=== PATIENT | male | born 1935 | race Caucasian/White ===

== ENCOUNTER → 2025-02-15 09:11 | Outpatient (REF) | payer OTHER, SELFPAY | LOC: RCS 09:11 | PROVIDERS: ATTENDING PHYSICIAN Nurse Practitioner Family | DX: R01.1 Cardiac murmur, unspecified (principal); I10 Essential (primary) hypertension; I25.10 Atherosclerotic heart disease of native coronary artery without angina pectoris; Z95.5 Presence of coronary angioplasty implant and graft; Z87.898 Personal history of other specified conditions | CPT/HCPCS: 93005; 93306 ==

== ENCOUNTER → 2025-02-24 11:50 | Outpatient (REF) | payer OTHER, SELFPAY ==
[2025-02-24 12:19] LABS: % Eosinophils 3.9 % (0-6); % Immature Granulocytes 0.6 % (0-0.5); % Lymphocytes 34.3 % (20.5-51.1); % Monocytes 9.3 % (1.7-9.3); % Neutrophils 50.9 % (42.2-75.2); Absolute Basophils 0.1 10^3/uL (0-0.2); Absolute Eosinophils 0.3 10^3/uL (0-0.7); Absolute Immature Granulocytes 0.1 10^3/uL (0-0.05); Absolute Lymphocytes 2.8 10^3/uL (1.2-3.4); Absolute Monocytes 0.8 10^3/uL (0.1-0.6); Absolute Neutrophils 4.2 10^3/uL (1.4-6.5); Hemoglobin 12.8 g/dL (13.0-18.0); Mean Corp Hgb Conc. 32.8 g/dL (33.0-37.0); Mean Corpuscular Hgb 27.1 pg (27.0-31.0); Mean Corpuscular Volume 82.6 fL (80.0-94.0); Mean Platelet Volume 10.4 fL (7.4-10.4); Nucleated Red Blood Cells % 0 % (-); Platelet Count 186 10^3/uL (130-400); Red Blood Cell Count 4.72 10^6/uL (4.70-6.10); Red Cell Dist. Width 14.8 % (11.5-14.5); White Blood Cell Count 8.2 10^3/uL (4.8-10.8)
[2025-02-24 12:23] LABS: ALT (SGPT) 20 U/L (0-50); AST (SGOT) 28 U/L (17-59); Albumin 4.4 g/dl (3.5-5.0); Alkaline Phosphatase 95 U/L (38-126); Blood Urea Nitrogen 23 mg/dl (9-20); Calcium 9.2 mg/dl (8.4-10.2); Carbon Dioxide 26 mmol/L (22-30); Chloride 108 mmol/L (98-107); Glucose 104 mg/dl (70-99); HDL Cholesterol 44 mg/dl; LDL Cholesterol, Calculated 82 mg/dl; Potassium 4.4 mmol/L (3.5-5.1); Sodium 141 mmol/L (135-145); Total Bilirubin 1.1 mg/dl (0.2-1.3); Total Cholesterol 151 mg/dl (50-199); Triglyceride 127 mg/dl (10-149); Very Low Density Lipoprotein 25 mg/dl (0-30); eGFR > 60.00
[2025-02-24 12:29] LABS: NT-proBNP 237 pg/ml
[2025-02-24 12:38] LABS: Vitamin D, 25-OH*** 39.4 ng/mL (30-80)
[2025-02-24 12:42] LABS: Urine Albumin Negative (Neg - Trace); Urine Bilirubin Negative (Negative); Urine Character Clear (Clear); Urine Color Yellow; Urine Glucose Negative (Negative); Urine Ketone Negative (Negative); Urine Leukocyte Negative (Negative); Urine Nitrite Negative (Negative); Urine Occult Blood Negative (Negative); Urine Urobilinogen Negative (Neg - 1+); Urine pH 6.5 (5.0-9.0)
[2025-02-24 12:52] LABS: TSH Reflex To Free T4 5.13 uIU/ml (0.47-4.68)
[2025-02-24 13:23] LABS: Free T4 0.87 ng/dl (0.78-2.19)
[2025-02-24 13:31] LABS: Glycohemoglobin (HgbA1c) 5.9 % (4.0-5.6)
== END ==
LOC: OLABWHC 11:50
PROVIDERS: ATTENDING PHYSICIAN Nurse Practitioner Family
DX: I10 Essential (primary) hypertension (principal); Z76.89 Persons encountering health services in other specified circumstances; I25.10 Atherosclerotic heart disease of native coronary artery without angina pectoris; Z95.5 Presence of coronary angioplasty implant and graft; G89.29 Other chronic pain; M54.50 Low back pain, unspecified; E78.2 Mixed hyperlipidemia; N40.0 Benign prostatic hyperplasia without lower urinary tract symptoms; H35.30 Unspecified macular degeneration; K21.9 Gastro-esophageal reflux disease without esophagitis; Z01.89 Encounter for other specified special examinations
CPT/HCPCS: 36415; 80053; 80061; 81003; 82306; 83036; 83880; 84439; 84443; 85025

== ENCOUNTER 2025-06-12 12:40 | Emergency (ER) | payer OTHER, SELFPAY ==
[2025-06-12 12:42] VITALS: BP 113/76
[2025-06-12] MEDS: TYLENOL 1000 MG PO (13:23)
--- NOTE | 2025-06-12 14:22 | ED.GENMED ---
History of Present Illness
General
Chief Complaint: Back Pain
Source: patient
Exam Limitations: none
Time Seen by Provider: 06/12/25 14:16
History of Present Illness
History of Present Illness:
89 yr old male presents to the ED for evaluation of low back pain. pt has history of chronic low back pain (and has muscle relaxers and Tylenol at home )however over a week ago was doing exercises with machines and since then has felt pain in
his left lower back. He denies any radiation. He has taken his cyclobenzaprine at home along with Tylenol without relief. He denies any other trauma. He denies any radiation to leg. no loss of bowel/bladder. He denies any numbness tingling or
weakness to legs.
Phy Exam
General Physical Exam
General Presentation: no apparent distress
General age: appears stated age and appears older than age
General Skin: warm and dry
General Habitus: elderly
General Mental: alert
General Hydration: appears well hydrated
Cardiovascular Exam
Cardiovascular Exam: regular rate/rhythm, no murmur and normal peripheral pulses
Neurological Exam
Neurological Exam: alert, oriented x3 and other (nml distal sensation , neg straight leg raise normal dorsiflexion plantarflexion bilaterally)
Musculoskeletal Exam
Musculoskeletal Exam: full ROM and other (Normal inspection to lumbar region tender to left lateral lumbar region)
Skin Exam
Skin Exam: normal color and warm/dry
Psychiatric Exam
Psychiatric Exam: normal mood/affect
Course
Orders/Labs/Results
Orders:
Orders
06/12/25 13:20
Acetaminophen [Tylenol] 1,000 mg .ROUTE .STK-MED ONE
06/12/25 13:23
Acetaminophen [Tylenol] 1,000 mg PO NOW STA
06/12/25 14:38
Dexamethasone Sod Phosphate [Decadron] 10 mg IM NOW STA
Lidocaine [Lidocaine 4% Patch] 1 patch TOPICAL NOW STA
Apply Lidocaine patch(s) to:: left lumbar region
06/12/25 14:39
Lumbar Spine Complete, 4 View [CR Lumbar Spine Comp Min 4 Vw*] Urgent
Comment:
Reason For Exam: trauma
06/12/25 15:17
Dexamethasone Pf [Decadron] 10 mg PO NOW STA
Vital Signs
Initial and Last Documented VS:
Initial Vital Signs
Temp Pulse Resp BP Pulse Ox
98.4 F 89 18 113/76 99
06/12/25 12:42 06/12/25 12:42 06/12/25 12:42 06/12/25 12:42 06/12/25 12:42
Last Documented Vital Signs
Temp Pulse Resp BP Pulse Ox
98.4 F 89 18 113/76 99
06/12/25 12:42 06/12/25 12:42 06/12/25 12:42 06/12/25 12:42 06/12/25 14:24
MDM/Problems Addressed
Differential Diagnosis Includes:
Not limited to lumbar sprain strain chronic back pain, compression fractures, constipation
MDM/Problems Addressed:
Patient history with chronic back pain presents to the ER with complaints of worsening low back pain after doing some exercises. He denies any trauma. X-rays are negative for fracture. Patient with no neurological deficits. He reports with back
pain he has had relief with steroids in the past. He was given a dose of steroids here. Will DC with Medrol Dosepak as this has worked for patient the past. He does have Flexeril and Tylenol at home. He complains of mild constipation and there
is moderate to large Lisa fecal material through the colon. He only tried 1 laxative will DC with MiraLAX. Will close the patient will follow
*Radiology
Radiology exam reviewed: radiology read reviewed
*Pulse Oximetry
SaO2: 99
Oxygen Mode of Delivery: Room air
Patient hypoxic: no
*Critical Care Note
Total Time (30-74mins, 75-104mins- exclusive of procedures): Not Applicable
ED Attending Note
-
Portions of this chart may have been created with voice recognition software.� Occasional wrong word or��sound alike� substitutions may have occurred due to the inherent limitations of voice recognition software.
Discharge Plan
Departure
Patient Disposition: Home (Routine Discharge)
Date of Disposition: 06/12/25
Time of Disposition: 16:32
Patient with high blood pressure during this ER visit?: No
Condition: Fair
Covid-19: Not Applicable
Discharge Problem:
Low back pain
Instructions: Low Back Pain (DC)
Prescriptions:
New
methylprednisolone [Medrol (Benoit)] 4 mg tablets,dose pack
See Rx Instructions .ROUTE .COMPLEX Qty: 21 0RF
Rx Instructions:
for 6 days
Referrals:
Jacques Brunner MD [Active, Orthopedics]
UNKNOWN - PT DOES,NOT KNOW [Family Provider]
Activity Restrictions/Additional Instructions:
As discussed a steroid prescription pack was sent to your pharmacy take as directed starting tomorrow. You may continue your muscle relaxer and Tylenol. Follow-up with your family doctor in the next 4 days as well as orthopedics.
Regarding your constipation please start to take MiraLAX daily. Follow a high-fiber diet avoid constipating foods such as bananas and breads. Increase your vegetables increase high-fiber diet increase water intake.
Return if any worsening of symptoms
Interventions
Interventions:
*Risk Screen - Suicide Last Done: 06/12/25 12:47
*General Assessment Last Done: 06/12/25 12:47
*Neglect/Abuse Screening Last Done: 06/12/25 12:47
*ED COVID-19 Vaccine History Last Done: 06/12/25 12:47
*ED Influenza Vaccine History Last Done: 06/12/25 12:47
ED-Musculoskeletal Assessment Last Done: 06/12/25 15:12
Discharge Date and Time
Print Language: MONTENEGRIN
[2025-06-12] MEDS: LIDOCAINE 4% PATCH 1 PATCH TOPICAL (15:08)
[2025-06-12] MEDS: DECADRON 10 MG PO (15:29)
== END 2025-06-12 17:05 | disposition home or self-care (01) ==
LOC: EMR 12:40
PROVIDERS: EMERGENCY PHYSICIAN Emergency Medicine
DX: M54.50 Low back pain, unspecified (principal); G89.29 Other chronic pain; K59.00 Constipation, unspecified
CPT/HCPCS: 99283; 72110

== ENCOUNTER 2025-06-23 07:47 | Inpatient (IN) | payer OTHER, SELFPAY ==
[2025-06-18] VITALS (14 sets, daily range): BP systolic 99–158; BP diastolic 43–90; PULSE 115; BMI 27.1; BMI 26.2
--- NOTE | 2025-06-18 08:51 | ED.GENMED ---
History of Present Illness
<LATASHA Brady - Last Filed: 06/18/25 16:02>
General
Chief Complaint: Back Pain
Source: patient
Exam Limitations: none
Time Seen by Provider: 06/18/25 08:27
Nursing documentation reviewed up to this point in time: agreed with
History of Present Illness
History of Present Illness:
Patient is an 89-year-old male with past medical history of chronic back pain hypertension reflux stent presents to the ER with complaints of back pain. Patient was seen here June 12 treated with Decadron and discharged with steroid Dosepak. He
has had worsening back pain for past 3wks. He has been using a muscle relaxer at home and did complete the steroids patient however continues to complain of pain to the left lateral back/posterior hip buttock area. He did see his PCP yesterday.
He denies any radiation of pain, denies any loss of bowel bladder. patient has had worsening pain over the past several days however now is having difficulty ambulating, standing changing positions because of pain. X-ray was done on patient's ER
visit June 12 which showed superior endplate fracture of L1.
Pt just completed his Medrol dose benoit.
Phy Exam
<LATASHA Brady - Last Filed: 06/18/25 16:02>
General Physical Exam
General Presentation: no apparent distress
General age: appears stated age
General Skin: warm and dry
General Habitus: elderly
General Mental: alert
General Hydration: appears well hydrated
Cardiovascular Exam
Cardiovascular Exam: regular rate/rhythm, no murmur and normal peripheral pulses
Pulmonary Exam
Pulmonary Exam: lungs clear and no respiratory distress
Neurological Exam
Neurological Exam: alert, oriented x3, no motor deficits, no sensory deficits and other (Normal dorsiflexion normal plantarflexion normal sensation; normal rectal tone )
Celio Coma Scale
Eye Opening: Spontaneous
Verbal Response: Oriented
Motor Response: Obeys Commands
GCS Total Score: 15
Musculoskeletal Exam
Musculoskeletal Exam: other ( no bony tenderness to lumbar region however pain with twisting in bed/moving )
Skin Exam
Skin Exam: normal color and warm/dry
Psychiatric Exam
Psychiatric Exam: normal mood/affect
Course
<LATASHA Brady - Last Filed: 06/18/25 16:02>
Orders/Labs/Results
Orders:
Orders
06/18/25 08:33
Electrocardiogram (*1) Urgent
Reason for Study: Other
Other Reason for Exam: back pain
EKG- Treatment ONCE
06/18/25 08:55
Morphine Sulfate 2 mg IV NOW STA
06/18/25 08:58
IV Insert/Care/Rem.- Treatment PRN
0.9% Sodium Chloride 500 ml [Nss] 500 ml IV BOLUS
06/18/25 09:02
C-Reactive Protein Urgent
Comment: ADD ON
Complete Blood Count/With Diff Urgent
Comprehensive Metabolic Panel Urgent
Erythrocyte Sed Rate Urgent
Comment: ADD ON
06/18/25 11:02
Physical Therapy Consult [Pt Eval And Treat] Urgent
Treatment: low back pain
Activity Level: Ambulate
06/18/25 11:41
Bladder Scan- Treatment ONCE
06/18/25 13:34
Straight cath- Treatment ONCE
06/18/25 13:35
Morphine Sulfate 4 mg IV NOW STA
06/18/25 14:00
Dexamethasone Sod Phosphate [Decadron] 10 mg IV NOW STA
06/18/25 14:38
diazePAM [Valium Injection] 2 mg IV NOW STA
06/18/25 14:39
UA Reflex to Culture [Urinalysis Reflex To Culture] Urgent
Date Specimen was Collected: 06/18/25
Time Specimen was Collected: 13:39
06/18/25 14:40
Add On- LAB Urgent
Tests Added?: sed rate and crp
06/18/25 15:48
Metoprolol [Lopressor] 100 mg PO NOW STA
Abnormal Lab Results
06/18/25 06/18/25
09:02 14:39
WBC 13.4 H 10^3/uL
(4.8-10.8)
Hct 38.7 L %
(39.0-52.0)
MCV 79.5 L fL
(80.0-94.0)
MCH 26.7 L pg
(27.0-31.0)
Abs Immat Gran (auto) 0.3 H 10^3/uL
(0-0.05)
Absolute Neuts (auto) 8.3 H 10^3/uL
(1.4-6.5)
Absolute Monos (auto) 1.4 H 10^3/uL
(0.1-0.6)
Immature Gran % 1.9 H %
(0-0.5)
Monocytes % 10.3 H %
(1.7-9.3)
ESR 28 H mm/hour
(0-20)
Total Bilirubin 1.4 H mg/dl
(0.2-1.3)
Alkaline Phosphatase 137 H U/L
(38-126)
Urine Ketones 2+ A
(Negative)
06/18/25 09:02
06/18/25 09:02
Vital Signs
Initial and Last Documented VS:
Initial Vital Signs
Temp
97.6 F
06/18/25 08:25
Last Documented Vital Signs
Temp Pulse Resp BP Pulse Ox
97.6 F 109 18 135/81 98
06/18/25 08:25 06/18/25 15:56 06/18/25 15:15 06/18/25 15:00 06/18/25 15:15
[employer] consulted with Physician
[employer] consulted with physician?: Yes
Name of Physician Consulted: anibal
<Donald Jerez, DO - Last Filed: 06/18/25 14:14>
Orders/Labs/Results
Orders:
Orders
06/18/25 08:33
Electrocardiogram (*1) Urgent
Reason for Study: Other
Other Reason for Exam: back pain
EKG- Treatment ONCE
06/18/25 08:55
Morphine Sulfate 2 mg IV NOW STA
06/18/25 08:58
IV Insert/Care/Rem.- Treatment PRN
0.9% Sodium Chloride 500 ml [Nss] 500 ml IV BOLUS
06/18/25 09:02
C-Reactive Protein Urgent
Comment: ADD ON
Complete Blood Count/With Diff Urgent
Comprehensive Metabolic Panel Urgent
Erythrocyte Sed Rate Urgent
Comment: ADD ON
06/18/25 11:02
Physical Therapy Consult [Pt Eval And Treat] Urgent
Treatment: low back pain
Activity Level: Ambulate
06/18/25 11:41
Bladder Scan- Treatment ONCE
06/18/25 13:34
Straight cath- Treatment ONCE
06/18/25 13:35
Morphine Sulfate 4 mg IV NOW STA
06/18/25 14:00
Dexamethasone Sod Phosphate [Decadron] 10 mg IV NOW STA
06/18/25 14:38
diazePAM [Valium Injection] 2 mg IV NOW STA
06/18/25 14:39
UA Reflex to Culture [Urinalysis Reflex To Culture] Urgent
Date Specimen was Collected: 06/18/25
Time Specimen was Collected: 13:39
06/18/25 14:40
Add On- LAB Urgent
Tests Added?: sed rate and crp
06/18/25 15:48
Metoprolol [Lopressor] 100 mg PO NOW STA
Abnormal Lab Results
06/18/25 06/18/25
09:02 14:39
WBC 13.4 H 10^3/uL
(4.8-10.8)
Hct 38.7 L %
(39.0-52.0)
MCV 79.5 L fL
(80.0-94.0)
MCH 26.7 L pg
(27.0-31.0)
Abs Immat Gran (auto) 0.3 H 10^3/uL
(0-0.05)
Absolute Neuts (auto) 8.3 H 10^3/uL
(1.4-6.5)
Absolute Monos (auto) 1.4 H 10^3/uL
(0.1-0.6)
Immature Gran % 1.9 H %
(0-0.5)
Monocytes % 10.3 H %
(1.7-9.3)
ESR 28 H mm/hour
(0-20)
Total Bilirubin 1.4 H mg/dl
(0.2-1.3)
Alkaline Phosphatase 137 H U/L
(38-126)
Urine Ketones 2+ A
(Negative)
06/18/25 09:02
06/18/25 09:02
Vital Signs
Initial and Last Documented VS:
Initial Vital Signs
Temp
97.6 F
06/18/25 08:25
Last Documented Vital Signs
Temp Pulse Resp BP Pulse Ox
97.6 F 109 18 135/81 98
06/18/25 08:25 06/18/25 15:56 06/18/25 15:15 06/18/25 15:00 06/18/25 15:15
<LATASHA Brady - Last Filed: 06/18/25 16:02>
MDM/Problems Addressed
Differential Diagnosis Includes:
Not limited to acute exacerbation of chronic back pain, urinary tension, UTI
MDM/Problems Addressed:
As documented patient is an 89-year-old male who presented with continued back pain. Patient was seen here June 12. He has been on steroids as prescribed but continues to complain of back pain .he denies trauma. He does live on his own however
today has not been able to get out of bed due to pain. This has been getting worse over the past several days. X-rays reviewed does show superior endplate fracture of L1 with moderate loss of vertebral body height he does have severe discogenic
disease. Patient with no weakness in leg.
Patient was given morphine for pain. No urinary frequency or urgency however patient had sensation to void here and was only able to give small amounts of urine. Patient is retaining approximately 600 cc of urine. Will straight cath and send
urine to the lab.
Patient has normal dorsiflexion plantarflexion of bilateral lower extremities normal reflexes and normal sensation. Rectal exam done and normal tone. Patient does however have pain with lifting left leg.
Patient is afebrile denies any recent fever chills his white count is minimally elevated however he recently completed steroids. His hemoglobin is stable his renal function is normal. His urine is negative for infection.
Patient was eval by physical therapy however not able to get up on his own.
Pt was eval by Dr. Jerez he does recommend adding on sed rate CRP and admission for further evaluation.
Patient intermittently tachycardic however daughter reports he has not had any of his meds since yesterday. Patient takes 100 mg of metoprolol immediate release that dose was ordered orally
1550: Patient feeling better after additional meds including Valium.
Chronic conditions affecting care:
chronic back pain
<LATASHA Brady - Last Filed: 06/18/25 16:02>
*Pulse Oximetry
SaO2: 99
Oxygen Mode of Delivery: Room air
Patient hypoxic: no
*Critical Care Note
Total Time (30-74mins, 75-104mins- exclusive of procedures): Not Applicable
Data Reviewed
Review of Other/Old Records Reveals: Radiology Studies
<LATASHA Brady - Last Filed: 06/18/25 16:02>
Patient Management
Discussion with other providers: Hospitalist
ED Attending Note
<LATASHA Brady - Last Filed: 06/18/25 16:02>
-
Portions of this chart may have been created with voice recognition software.� Occasional wrong word or��sound alike� substitutions may have occurred due to the inherent limitations of voice recognition software.
<Donald Jerez DO - Last Filed: 06/18/25 14:14>
ED Attending Note
Patient seen and examined by attending physician: Yes
I performed the substantive portion of visit, reviewed & personally made and approve the management plan that is documented in note by myself or KAILEY.: Yes
ED Attending Note:
SENIOR PROJECT MANAGER ENGINEERING examined independently 89-year-old male with back pain 3 years ago he had similar episode improved with steroids he was living in [place] at that time a week or 2 ago he was doing some exercises felt pain in his back, seen in the ER, given a
x-ray and steroid pack continues with pain on exam he is awake alert and oriented lying on his side is able to lift his legs off the bed albeit gingerly, x-ray report noted, PT has seen the patient suspect he may require admission and rehab placement
Discharge Plan
Departure
Patient Disposition: Admit
Date of Disposition: 06/18/25
Time of Disposition: 16:02
Admit to: Med/Surg
Admit to doctor: hospitalist
Presentation/result/management discussed w/ accepting MD/DO: Hospitalist
Patient with high blood pressure during this ER visit?: Yes
Condition: Fair
Covid-19: Not Applicable
Discharge Problem:
Low back pain, Acute urinary retention
Prescriptions:
No Action
methylprednisolone [Medrol (Benoit)] 4 mg tablets,dose pack
See Rx Instructions .ROUTE .COMPLEX Qty: 21 0RF
Rx Instructions:
for 6 days
Referrals:
Johnny Santoro DO [Family Provider, Internal Medicine]
Interventions
Interventions:
*Risk Screen - Suicide Last Done: 06/18/25 08:25
*General Assessment Last Done: 06/18/25 08:25
*Neglect/Abuse Screening Last Done: 06/18/25 08:25
*ED- Fall Risk Assessment Last Done: 06/18/25 08:25
*ED COVID-19 Vaccine History Last Done: 06/18/25 08:25
*ED Influenza Vaccine History Last Done: 06/18/25 08:25
ED-Musculoskeletal Assessment Last Done: 06/18/25 08:25
Discharge Date and Time
Print Language: ROMANIAN
[2025-06-18] MEDS: MORPHINE SULFATE 2 MG IV (09:07)
[2025-06-18] MEDS: NSS 500 IV (09:08)
[2025-06-18 09:10] LABS: Hematocrit 38.7 % (39.0-52.0); Hemoglobin 13.0 g/dL (13.0-18.0); Mean Corp Hgb Conc. 33.6 g/dL (33.0-37.0); Mean Corpuscular Volume 79.5 fL (80.0-94.0); Nucleated Red Blood Cells % 0 % (-); Platelet Count 310 10^3/uL (130-400); Red Cell Dist. Width 13.9 % (11.5-14.5)
[2025-06-18 09:27] LABS: ALT (SGPT) 17 U/L (0-50); AST (SGOT) 23 U/L (17-59); Albumin 4.8 g/dl (3.5-5.0); Alkaline Phosphatase 137 U/L (38-126); Blood Urea Nitrogen 20 mg/dl (9-20); Calcium 9.6 mg/dl (8.4-10.2); Carbon Dioxide 24 mmol/L (22-30); Chloride 101 mmol/L (98-107); Estimated Creatinine Clearance 58 ml/min; Glucose 97 mg/dl (70-99); Potassium 4.6 mmol/L (3.5-5.1); Sodium 136 mmol/L (135-145); Total Protein 7.5 g/dl (6.3-8.2); eGFR > 60.00
[2025-06-18] MEDS: MORPHINE SULFATE 4 MG IV (13:40)
[2025-06-18] MEDS: DECADRON 10 MG IV (14:44)
[2025-06-18] MEDS: VALIUM INJECTION 2 MG IV (14:46)
[2025-06-18 15:06] LABS: Urine Character Clear (Clear)
[2025-06-18 15:42] LABS: C-Reactive Protein < 5.00 mg/L (0.0-10.00)
[2025-06-18] MEDS: LOPRESSOR 100 MG PO (15:56)
--- NOTE | 2025-06-18 15:57 | HPS.HSE ---
Family Physician
-
Family Physician: Johnny Santoro
Chief Complaint
-
Left lower buttocks, back pain
History of Present Illness
89-year-old male with past medical history of chronic back pain hypertension, GERD,, BPH, hypertension, hyperlipidemia presented to us with left lower back, buttocks pain for past 2 weeks. Patient was doing exercises 2 weeks ago he pulled some
muscle, since then he has been having left lower back pain.patient does not have any trouble moving around. Patient can only lay on his right side. Patient not able to get up from laying position due to excruciating pain. It takes an hour to get
up from the bed. Patient denied any headache, dizzy or syncope. Patient denied any fever, chills, chest pain, short of breath. Patient denied any abdominal pain, nausea. Patient stated some diarrhea yesterday. Patient denied dysuria hematuria.
Patient was seen here June 12 treated with Decadron and discharged with steroid Dosepak. He has been using a muscle relaxer at home and did complete the steroids patient however continues to complain of pain to the left lateral back/posterior
hip buttock area. He did see his PCP yesterday. He denies any radiation of pain, denies any loss of bowel bladder.
Admitted for further management
Medical History
Past Medical History
Past Medical History: Reports Other
Additional Past Medical History:
Macular degeneration, cardiac stents, hypertension, hyperlipidemia
Past Surgical History: Reports Other
Additional Past Surgical History:
Cardiac stent
Social History
Tobacco: Non-smoker
Alcohol: None
Drug: None
Personal: Single
Living: Alone
Family History
Family History: Not pertinent
Allergies / Home Medications
Allergies reflects when Allergies were last updated in [facility].
Home Medications with original date entered in [facility]
Allergy/Medication List:
Allergies
Allergy/AdvReac Type Severity Reaction Status Date / Time
No Known Allergies Allergy Unverified 06/12/25 12:43
Home Medications
acetaminophen 650 mg tablet,extended release 1,300 mg PO Q6HPRN PRN mild pain 06/18/25
cholecalciferol (vitamin D3) 50 mcg (2,000 unit) tablet (Vitamin D3) 50 mcg PO DAILY 06/18/25
clopidogrel 75 mg tablet (Plavix) 75 mg PO DAILY 06/18/25
cyclobenzaprine 10 mg tablet 10 mg PO HS 06/18/25
cyclobenzaprine 5 mg tablet 5 mg PO BID 06/18/25
doxazosin 8 mg tablet 8 mg PO QPM 06/18/25
finasteride 5 mg tablet 5 mg PO DAILY 06/18/25
glucosamine sulfate 500 mg tablet (Glucosamine) 1,000 mg PO DAILY 06/18/25
glucosamine sulfate 500 mg tablet (Glucosamine) 500 mg PO QPM 06/18/25
metoprolol tartrate 100 mg tablet (Lopressor) 100 mg PO BID 06/18/25
omeprazole 40 mg capsule,delayed release 40 mg PO DAILY 06/18/25
pravastatin 40 mg tablet 40 mg PO HS 06/18/25
vitamins A,C,D-tbdc-ncgpic 2,148 mcg-113 mg-45 mg-17.4 mg tablet (PreserVision AREDS) 1 tab PO BID 06/18/25
Review of Systems
-
Constitutional: Reports No Symptoms
EENT: Reports No Symptoms
Respiratory: Reports No Symptoms
Cardiac: Reports No Symptoms
Abdomen/GI: Reports No Symptoms
: Reports No Symptoms
Musculoskeletal: Reports Other (Back pain)
Skin: Reports No Symptoms
Neurological: Reports No Symptoms
Endocrine: Reports No Symptoms
Hematologic/Lymphatic: Reports No Symptoms
Psych: Reports No Symptoms
Physical Exam
Vital Signs
Vital Signs
Temp Pulse Resp BP Pulse Ox
97.6 F 107 18 135/81 98
06/18/25 08:25 06/18/25 15:15 06/18/25 15:15 06/18/25 15:00 06/18/25 15:15
Physical Exam
General: Well Developed, Well Nourished and No Apparent Distress
HEENT: NormoCephalic, Moist mucous membranes and Atraumatic
Respiratory: Clear
Cardiac: S1/S2 and Regular Rhythm; No Murmur or Rub
GI: Soft, Non Tender, Non Distended and Normal Bowel Sounds; No Organomegaly
Rectal: Deferred by Provider
Musculoskeletal: No Clubbing, No Cyanosis and No Edema
Skin: No Rash
Neuro: AO x 3 and Nonfocal/grossly intact
Psych: Calm
Laboratory Results
-
06/18/25 09:02
06/18/25 09:02
Laboratory Results
Total Bilirubin 1.4 mg/dl (0.2-1.3) H 06/18/25 09:02
AST 23 U/L (17-59) 06/18/25 09:02
ALT 17 U/L (0-50) 06/18/25 09:02
Alkaline Phosphatase 137 U/L (38-126) H 06/18/25 09:02
Data Reviewed
-
Diagnostic Radiology: Report Reviewed by me
Lab Data: Labs Reviewed by me
Impression/Plan
-
# Exacerbation of chronic back pain likely from endplate fracture
- ESR 28
-lumbar spine x ray with Moderate right convex curvature of the upper lumbar spine.
2. Superior endplate fracture of L1 with moderate loss of vertebral body height.
3. 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
4. Osteoporosis.
5. Moderate to large amount of fecal material throughout the colon.
-PT/OT consulted
-Tylenol, lidocaine, tramadol and Dilaudid prn for pain
- Flexeril continued
-obtain MRI of lumbar spine
# Constipation
- MiraLAX, Colace, senna
# Urinary retention
- Straight cath in the ER
- Consider Merida catheter if no void in 8 hours
-bladder scan
# Tachycardia likely from missed beta-blockers
- Metoprolol continued
# Leukocytosis likely from recent steroid use
- WBC 13.4, patient is afebrile
- Continue to monitor
# History of CAD
# Cardiac stent
- Plavix continued
#History of BPH
- Doxazosin, finasteride continue
# Essential hypertension
- Metoprolol continue with hold parameter
#GERD
- PPI continued
# Hyperlipidemia
- Pravastatin continued
#DVT prophylaxis
-Lovenox
#CODE status
-full code
--- NOTE | 2025-06-18 16:52 | W.PN.UPDATE ---
Update Note
Progress Note Update
This note serves as an addendum to the H&P by workers' compensation claims examiner Hero PRETTY�
HPI�
89M HX CAD, stents, BPH, HTN, GERD , HLD seen at [facility]
- left lower back, buttocks pain for past 2 weeks.
- was doing exercises 2 weeks ago he pulled some muscle, since then he has been having left lower back pain.
- does not have any trouble moving around.
- can only lay on his right side.
Reviewed VS:
Temp Pulse Resp BP Pulse Ox
97.6 F 106 16 125/90 99
06/18/25 08:25 06/18/25 16:45 06/18/25 16:45 06/18/25 16:00 06/18/25 16:45
PE
Gen: NAD
HEENT: moist OM
Neck: supple
Lungs: CTA
Cor: RR No M
Abdomen:�soft NT NG
MANAGER BUSINESS CONTINUITY: NFND
Relevant Data�
Abnormal Labs
06/18/25 06/18/25
09:02 14:39
WBC 13.4 H
Hct 38.7 L
MCV 79.5 L
MCH 26.7 L
Abs Immat Gran (auto) 0.3 H
Absolute Neuts (auto) 8.3 H
Absolute Monos (auto) 1.4 H
Immature Gran % 1.9 H
Monocytes % 10.3 H
ESR 28 H
Total Bilirubin 1.4 H
Alkaline Phosphatase 137 H
CR Lumbar Spine Comp Min 4 Vw
1. Moderate right convex curvature of the upper lumbar spine.
2. Superior endplate fracture of L1 with moderate loss of vertebral body height.
3. 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
4. Osteoporosis.
5. Moderate to large amount of fecal material throughout the colon.
Urine Ketones 2+ A
NO PRIOR hospitalist admission:
ASSESSMENT & PLAN
Acute on chr LBP last several weeks
XR POS for chronic changes on his lumbar film + L1 superior endplate fx with loss of vertebral body height.
- Afebrile + elevated WCC suspect steroid induced ( recently completed steroids)
- Inadequate pain control at ER meds
- Acute urinary retention and straight cath done but NEG UA
- Good rectal tone per ER
- Lido patch
- PRN Tramadol for moderate pain, Dilaudid for severe pain
- MRI Lx spine in AM
- PT/OT
Acute urinary retention and straight cath done but NEG UA
- Bladder scan protocol
Intermittently tachy
- missed several doses of his metoprolol
- resume on metoprolol 100 mg immediate release.
DVT Px: LMWH
Full code
OBS MS
--- NOTE | 2025-06-18 19:00 | PTCARENOTE ---
Pt. admitted on day shift, AAO x 3, vs stable, bed alarm intact, call irving within reach.
[2025-06-18] MEDS: MIRALAX PO (19:03)
[2025-06-18] MEDS: LIDOCAINE 4% PATCH 1 PATCH TOPICAL (19:46)
[2025-06-18] MEDS: LOVENOX 40 MG SC (19:47)
[2025-06-18] MEDS: COLACE 100 MG PO (19:47)
[2025-06-18] MEDS: OCUVITE SOFTGEL 1 CAP PO (19:48)
[2025-06-18] MEDS: LOPRESSOR PO (19:54)
[2025-06-18] MEDS: CARDURA PO (19:55)
[2025-06-18] MEDS: PRAVACHOL 40 MG PO (22:31)
[2025-06-18] MEDS: FLEXERIL 10 MG PO (22:36)
[2025-06-18] MEDS: TYLENOL 1000 MG PO (22:36)
[2025-06-18] MEDS: SENOKOT 8.6 MG PO (22:36)
[2025-06-19] VITALS (7 sets, daily range): BP systolic 105–136; BP diastolic 50–79; PULSE 75; O2SAT 97
[2025-06-19] MEDS: TYLENOL 1000 MG PO ×3 (08:16→22:42)
[2025-06-19] MEDS: LIDOCAINE 4% PATCH 1 PATCH TOPICAL (08:17)
[2025-06-19] MEDS: PROTONIX 40 MG PO (08:17)
[2025-06-19] MEDS: PLAVIX 75 MG PO (08:17)
[2025-06-19] MEDS: OCUVITE SOFTGEL 1 CAP PO ×2 (08:17→20:27)
[2025-06-19] MEDS: PROSCAR 5 MG PO (08:17)
[2025-06-19] MEDS: LOPRESSOR 100 MG PO ×2 (08:18→20:27)
[2025-06-19] MEDS: MIRALAX PO (08:18)
[2025-06-19] MEDS: COLACE 100 MG PO ×2 (08:18→20:25)
[2025-06-19 09:09] LABS: Hematocrit 38.4 % (39.0-52.0); Hemoglobin 12.6 g/dL (13.0-18.0); Mean Corp Hgb Conc. 32.8 g/dL (33.0-37.0); Mean Corpuscular Volume 81.5 fL (80.0-94.0); Platelet Count 286 10^3/uL (130-400); Red Cell Dist. Width 14.4 % (11.5-14.5)
--- NOTE | 2025-06-19 09:15 | W.PN.HOSP.TC ---
Today's Communication/Plan
-
see outlined plan below
Assessment / Plan
Assessment / Plan
Assessment:
Exacerbation of chronic back pain likely from endplate fracture
- ESR 28
- 1. lumbar spine x ray with Moderate right convex curvature of the upper lumbar spine.
2. Superior endplate fracture of L1 with moderate loss of vertebral body height.
3. 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
4. Osteoporosis.
5. Moderate to large amount of fecal material throughout the colon.
- MRI L spine pending
- PT/OT evaluation
- pain control: scheduled tylenol, pain patches. prn Tramadol/Dilaudid
- Flexeril for muscle relaxer
- hold steroids
Constipation on imaging
- MiraLAX, Colace, senna
Urinary retention
- Straight cath in the ER
- continue bladder scan/SC protocol
Tachycardia likely from missed beta-blockers
- Metoprolol continued
Leukocytosis likely from recent steroid use
- WBC 13.4 - > 12.3; patient is afebrile
- Continue to monitor
History of CAD
Cardiac stent
- Plavix continued
History of BPH
- Doxazosin, finasteride continue
Essential hypertension
- Metoprolol continue with hold parameter
GERD
- PPI continued
Hyperlipidemia
- Pravastatin continued
DVT prophylaxis: Lovenox
Code: Full
Anticipated Discharge: > 48 hours
Subjective/Interval History
-
Date of Service: June 19, 2025
reports Left lower back pain
Objective Data
-
Labs:
Laboratory Results
06/19/25
08:45
WBC 12.3 H
Hgb 12.6 L
Hct 38.4 L
Plt Count 286
Sodium Pending
Potassium Pending
Chloride Pending
Carbon Dioxide Pending
BUN Pending
Creatinine Pending
Glucose Pending
Calcium Pending
Vital Signs:
Vital Signs
Temp Pulse Resp BP Pulse Ox
97.4 F 89 12 136/75 97
06/19/25 03:49 06/19/25 03:49 06/19/25 03:49 06/19/25 03:49 06/19/25 03:49
I&O
06/18/25 06/19/25 06/20/25
06:59 06:59 06:59
Intake Total 240 / 240
Output Total 400 / 400
Balance -160 / -160
Physical Exam
-
General: Pain
HEENT: Normocephalic and Atraumatic
Respiratory: Negative Wheezes
Cardiac: Regular Rhythm and S1/S2
GI: Soft and Nontender
Genito-urinary: No Costovertebral Tender
Musculoskeletal: Other (L lower lumbar paraspinal muscle tenderness)
Neuro: AO x 3
Hematologic / Lymphatic: No Lymphadenopathy
Psych: Calm
Data Reviewed
-
Total Time Spent with Patient (in minutes): 42
Labs: Labs Reviewed by me
[2025-06-19 09:48] LABS: Blood Urea Nitrogen 22 mg/dl (9-20); Calcium 9.2 mg/dl (8.4-10.2); Carbon Dioxide 25 mmol/L (22-30); Chloride 103 mmol/L (98-107); Estimated Creatinine Clearance 64 ml/min; Glucose 105 mg/dl (70-99); Potassium 4.2 mmol/L (3.5-5.1); Sodium 136 mmol/L (135-145); eGFR > 60.00
[2025-06-19] MEDS: FLEXERIL 5 MG PO (10:23)
[2025-06-19] MEDS: LOVENOX 40 MG SC (17:18)
[2025-06-19] MEDS: CARDURA 8 MG PO (17:20)
[2025-06-19] MEDS: ULTRAM 50 MG PO (20:29)
[2025-06-19] MEDS: FLEXERIL 10 MG PO (22:41)
[2025-06-19] MEDS: PRAVACHOL 40 MG PO (22:42)
[2025-06-19] MEDS: SENOKOT 8.6 MG PO (22:42)
[2025-06-19] MEDS: DILAUDID 0.5 MG IV (23:48)
[2025-06-20] VITALS (7 sets, daily range): BP systolic 103–163; BP diastolic 52–73; PULSE 70; O2SAT 97
--- NOTE | 2025-06-20 07:15 | PTCARENOTE ---
06/20- Patient is AAOX3, anxious. He wants water, his food and his meds while laying flat. Explained we cannot feed him or administer meds while laying flat due to risk of choking and aspiration. Offered him Dilaudid for pain if sitting upright
is too painful at this time. He refuses dilaudid and just wants to lay flat and eat. Advised we cannot do that, but we can sit part way up to safely eat, drink and take meds, or we can offer pain management to help cope with sitting fully up. He
at first refused all options but then stated he'll sit partially up. Positioned bed at ~40degree angle. Patient then stated he cannot eat himself due to hand tremors. He denies any health hx or parkinsons, but fine motor movements like handling
silverware can give him hand tremors. He is however, able to hold cup of water and drink from straw by himself without issue. PCT will assist patient in eating food.
[2025-06-20] MEDS: TYLENOL 1000 MG PO ×2 (07:16→22:59)
[2025-06-20] MEDS: PROTONIX 40 MG PO (07:16)
[2025-06-20] MEDS: FLEXERIL 5 MG PO (07:16)
[2025-06-20] MEDS: TYLENOL PO (07:16)
[2025-06-20] MEDS: OCUVITE SOFTGEL 1 CAP PO ×2 (07:16→19:50)
[2025-06-20] MEDS: COLACE 100 MG PO ×2 (07:16→19:50)
[2025-06-20] MEDS: LOPRESSOR 100 MG PO ×2 (07:16→19:50)
[2025-06-20] MEDS: PLAVIX 75 MG PO (07:16)
[2025-06-20] MEDS: PROSCAR 5 MG PO (07:16)
[2025-06-20] MEDS: MIRALAX 17 GRAMS PO (07:17)
[2025-06-20] MEDS: LIDOCAINE 4% PATCH 1 PATCH TOPICAL (07:17)
[2025-06-20 08:26] LABS: Hematocrit 38.5 % (39.0-52.0); Hemoglobin 13.0 g/dL (13.0-18.0); Mean Corp Hgb Conc. 33.8 g/dL (33.0-37.0); Mean Corpuscular Volume 80.4 fL (80.0-94.0); Platelet Count 198 10^3/uL (130-400); Red Cell Dist. Width 14.2 % (11.5-14.5)
[2025-06-20 09:36] LABS: Blood Urea Nitrogen 22 mg/dl (9-20); Calcium 8.8 mg/dl (8.4-10.2); Carbon Dioxide 27 mmol/L (22-30); Chloride 101 mmol/L (98-107); Estimated Creatinine Clearance 72 ml/min; Glucose 99 mg/dl (70-99); Potassium 4.0 mmol/L (3.5-5.1); Sodium 134 mmol/L (135-145); eGFR > 60.00
--- NOTE | 2025-06-20 12:06 | CM ---
CM reviewed chart, patient seen bedside, initial assessment completed.
Patient is an 89-year-old male with past medical history of chronic back pain hypertension, GERD, BPH, hypertension, hyperlipidemia presented to us with left lower back, buttocks pain for past 2 weeks.
Patient resides in [facility] [place]- recently moved to [facility] from [facility]- reports daughter is local to [facility].
Patient reports recently using a rolling walker, was previous independent.
Patient denies VN/SNF hx.
PCP Johnny Schultz
Pharmacy [facility]
CM discussed therapy recommendations of SNF- agreeable to rehab, referral placed to [place], will require auth.
CHANDLER form verbally reviewed, provided with copy, placed in chart.
Plan; SNF, ref to [facility], will require auth
[2025-06-20] MEDS: ULTRAM 50 MG PO (12:51)
--- NOTE | 2025-06-20 13:02 | W.PN.HOSP.TC ---
Today's Communication/Plan
-
Continue the pain regimen
Order LSO brace
Continue with PT
IR consult for role of vertebroplasty
Assessment / Plan
Assessment / Plan
Assessment:
Exacerbation of chronic back pain likely from endplate fracture
- ESR 28
- 1. lumbar spine x ray with Moderate right convex curvature of the upper lumbar spine.
2. Superior endplate fracture of L1 with moderate loss of vertebral body height.
3. 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
4. Osteoporosis.
5. Moderate to large amount of fecal material throughout the colon.
- MRI L spine shows L1 moderate compression fraction with mild number retropulsion but no significant secondary spinal canal stenosis. There is bone marrow edema of the L1 vertebral body. Chronic advanced DJD's of lumbar spine noted. Moderate to
severe spinal canal stenosis at L3-L4 noted
-Suspect his pain is from the L1 compression fracture
- PT/OT evaluation
- pain control: scheduled tylenol, pain patches. prn Tramadol/Dilaudid
- Flexeril for muscle relaxer
- hold steroids
- Consult IR for role of vertebroplasty
Constipation on imaging
- MiraLAX, Colace, senna
Urinary retention
- Straight cath in the ER
- continue bladder scan/SC protocol
Tachycardia likely from missed beta-blockers
- Metoprolol continued. Resolved
Leukocytosis likely from recent steroid use
- WBC 13.4 - > 12.3; patient is afebrile
- Continue to monitor
History of CAD
Cardiac stent
- Plavix continued
History of BPH
- Doxazosin, finasteride continue
Essential hypertension
- Metoprolol continue with hold parameter
GERD
- PPI continued
Hyperlipidemia
- Pravastatin continued
DVT prophylaxis: Lovenox
Code: Full
Discussed with daughter at bedside
Total time spent on today's encounter was 52 minutes which included time spent in counseling the patient/family regarding diagnosis and treatment plan as listed above, goals of care, and symptom management. Case was discussed with nursing staff,
specialists, and care coordinators/case management. All labs and imaging personally reviewed by me. Remainder the time spent in detailed review of previous records, lab data, imaging, and other medical provider documentation.
Anticipated Discharge: > 48 hours
Subjective/Interval History
-
Date of Service: June 20, 2025
Continued back pain and localized to the lower back and to the left side of lower back. No radiation to the legs. Intractable for 2 weeks.
Denies fever or chills.
Nontraumatic in nature but experienced the pain after doing some form of exercises in the gym.
Denies any weight loss history.
No shortness of breath or chest pain.
Objective Data
-
Labs:
Laboratory Results
06/20/25 06/20/25
07:33 08:39
WBC 9.9
Hgb 13.0
Hct 38.5 L
Plt Count 198 D
Sodium Cancelled 134 L
Potassium Cancelled 4.0
Chloride Cancelled 101
Carbon Dioxide Cancelled 27
BUN Cancelled 22 H
Creatinine Cancelled 0.8
Glucose Cancelled 99
Calcium Cancelled 8.8
Vital Signs:
Vital Signs
Temp Pulse Resp BP Pulse Ox
98.1 F 62 18 134/67 97
06/20/25 11:15 06/20/25 11:15 06/20/25 11:15 06/20/25 11:15 06/20/25 11:15
I&O
06/19/25 06/20/25 06/21/25
06:59 06:59 06:59
Intake Total 240 / 240 1200 / 1200
Output Total 400 / 400 550 / 550
Balance -160 / -160 650 / 650
Physical Exam
-
General: No Apparent Distress
HEENT: Moist Mucous Membranes
Respiratory: Non Labored Respirations; Negative Accessory Resp Muscle Use
Cardiac: Regular Rhythm and S1/S2; Negative Tachycardic
GI: Soft
Musculoskeletal: Other (No vertebral body tenderness but received IV pain medication just before the exam)
Neuro: AO x 3 and No Motor Deficits
Psych: Calm; Negative Confused
Data Reviewed
-
MRI: Report Reviewed by me (Lumbar spine)
Labs: Labs Reviewed by me
[2025-06-20] MEDS: TORADOL 15 MG IV ×2 (14:48→23:41)
--- NOTE | 2025-06-20 14:58 | W.PN.GENERIC ---
Assessment / Plan
-
This is a pleasant 89-year-old male with symptomatic [id number] fracture. He has known osteoporosis and cardiac stents on Plavix. The symptoms are interfering with his activities of daily living. We discussed treatment options including
conservative management with brace and pain medication, JOCELINE injection and vertebral augmentation. He has no comorbidities that would interfere with planned treatment. I believe he should be a good candidate for vertebral augmentation.
I discussed the technique of vertebral body augmentation including the logistics, risks and benefits, success and failure rates as well as alternatives. Risks include but are not limited to: incomplete treatment, need for surgery, infection, abscess
formation, spinal cord injury and paralysis.� We discussed the probability of outcomes and the length of convalescence post procedure.�
We can trentatively plan to perform the procedure on FridayJune 28. The patient and family are aware.
He will need to hold his Plavix for 5 days if cardiology agrees it is safe with regards to his stents
He will need to have an INR drawn prior to the procedure
He will need to be NPO past midnight prior to the procedure which will be performed with anesthesia support.
Recommend LSO brace in the meantime for comfort and stability
Continue pain medication as needed
I spent over one hour in counseling and coordination of care with the patient and his daughter, reviewing previous medical records, laboratory studies and all relevant imaging, including history taking, physical exam and documentation as well as
discussing the procedure and expected outcome with the patient and his daughter. I answered alll of their questions to their satisfaction.
Physician Progress Note
Subjective
Consult: Interventional Radiology
Diagnosis: L1 Compression Fracture
Requesting: Padilla Cote
This is an 89-year-old male with past medical history of chronic back pain, hypertension, reflux, osteoporosis, and cardiac stent on Plavix who was admitted for exacerbation of back pain. He reports the symptoms started after he was doing some
stretching exercises. He was seen in the ER June 12, treated with Decadron and discharged with steroid Dosepak. He has had worsening back pain since that time. He was seen by his PCP on Saturday and given another course of steroids and started
on Flexeril with only minimal relief. The pain is in the left lateral back/posterior hip buttock area. The pain does not radiate down his leg. He denies paresthesias or weakness. He denies loss of bowel or bladder control. He reports his legs feel
heavy and the pain is exacerbated with movement. It takes him more than an hour to get OOB in the morning. He now is having difficulty ambulating, standing or changing positions because of this pain. He had an MRI which shows an acute L1
compression fracture.
Past Medical History:
Macular degeneration, cardiac stents, hypertension, hyperlipidemia, osteoporosis
Past Surgical History:
Cardiac stents
Social History
Tobacco: Non-smoker
Living: Alone
Allergies
Allergy/AdvReac Type Severity Reaction Status Date / Time
No Known Allergies Allergy Unverified 06/12/25 12:43
Home Medications
The patients current medications were documented and reviewed at the time of this consult including medication name, dosage, frequency and route of administration
acetaminophen 650 mg tablet,extended release 1,300 mg PO Q6HPRN PRN mild pain 06/18/25 cholecalciferol (vitamin D3) 50 mcg (2,000 unit) tablet (Vitamin D3) 50 mcg PO DAILY 06/18/25 clopidogrel 75 mg tablet (Plavix) 75 mg PO DAILY 06/18/25
cyclobenzaprine 10 mg tablet 10 mg PO HS 06/18/25 cyclobenzaprine 5 mg tablet 5 mg PO BID 06/18/25 doxazosin 8 mg tablet 8 mg PO QPM 06/18/25 finasteride 5 mg tablet 5 mg PO DAILY 06/18/25 glucosamine sulfate 500 mg tablet (Glucosamine) 1,000 mg PO
DAILY 06/18/25 glucosamine sulfate 500 mg tablet (Glucosamine) 500 mg PO QPM 06/18/25 metoprolol tartrate 100 mg tablet (Lopressor) 100 mg PO BID 06/18/25 omeprazole 40 mg capsule,delayed release 40 mg PO DAILY 06/18/25 pravastatin 40 mg tablet 40
mg PO HS 06/18/25 vitamins A,C,H-vhjv-knchbc 2,148 mcg-113 mg-45 mg-17.4 mg tablet (PreserVision AREDS) 1 tab PO BID 06/18/25
Objective
Vital Signs
Temp Pulse Resp BP Pulse Ox
98.1 F 62 18 134/67 97
06/20/25 11:15 06/20/25 11:15 06/20/25 11:15 06/20/25 11:15 06/20/25 11:15
Lab Results
06/20/25 07:33
06/20/25 08:39
This is a WNWD 89 yo male who is AA&O in NAD lying in bed. Color is good. Skin is warm and dry. He is wearing hearing aids. Neck is supple. Heart is regular. Lungs are CTA. Abdomen is soft and nontender with bowel sounds. There is ttp over
the lumbar spine. The is no deformity noted. SLR elicits no radicular pain or paresthesias. Senstation is maintained. Strength is maintained. DTR +1.
[2025-06-20] MEDS: LOVENOX 40 MG SC (17:16)
[2025-06-20] MEDS: CARDURA 8 MG PO (17:17)
[2025-06-20] MEDS: SENOKOT 8.6 MG PO (22:59)
[2025-06-20] MEDS: PRAVACHOL 40 MG PO (22:59)
[2025-06-20] MEDS: FLEXERIL 10 MG PO (23:01)
[2025-06-20] MEDS: MELATONIN 5 MG PO (23:33)
[2025-06-21] VITALS (7 sets, daily range): BP systolic 109–150; BP diastolic 51–65; PULSE 73–80; O2SAT 97
[2025-06-21] MEDS: PROTONIX 40 MG PO (07:16)
[2025-06-21] MEDS: COLACE 100 MG PO ×2 (07:17→19:41)
[2025-06-21] MEDS: LOPRESSOR 100 MG PO ×2 (07:17→19:41)
[2025-06-21] MEDS: OCUVITE SOFTGEL 1 CAP PO ×2 (07:17→19:41)
[2025-06-21] MEDS: PLAVIX 75 MG PO (07:17)
[2025-06-21] MEDS: FLEXERIL 5 MG PO (07:17)
[2025-06-21] MEDS: TYLENOL 1000 MG PO ×2 (07:17→16:05)
[2025-06-21] MEDS: PROSCAR 5 MG PO (07:17)
[2025-06-21] MEDS: LIDOCAINE 4% PATCH 1 PATCH TOPICAL (07:18)
[2025-06-21] MEDS: MIRALAX 17 GRAMS PO (07:20)
[2025-06-21] MEDS: TORADOL 15 MG IV ×2 (07:23→17:25)
[2025-06-21] MEDS: ULTRAM 50 MG PO ×2 (11:40→19:44)
--- NOTE | 2025-06-21 11:59 | W.PN.HOSP.TC ---
Addendum entered and electronically signed by Padilla Cote MD 06/21/25 16:14:
Got a callback from Rosa the nurse with Dr. Renteria primary automotive window tinter for the patient in [facility].
Apparently patient is 15 years out since last coronary stents and recommends holding further Plavix. Okay to continue with aspirin.
Original Note:
Today's Communication/Plan
-
Hold plavix once cards return call and ok with it
CW pain medication and PT
LSO brace
Assessment / Plan
Assessment / Plan
Assessment:
Exacerbation of chronic back pain likely from endplate fracture
- ESR 28
1. lumbar spine x ray with Moderate right convex curvature of the upper lumbar spine.
2. Superior endplate fracture of L1 with moderate loss of vertebral body height.
3. 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
4. Osteoporosis.
5. Moderate to large amount of fecal material throughout the colon.
- MRI L spine shows L1 moderate compression fraction with mild number retropulsion but no significant secondary spinal canal stenosis. There is bone marrow edema of the L1 vertebral body. Chronic advanced DJD's of lumbar spine noted. Moderate to
severe spinal canal stenosis at L3-L4 noted
-Suspect his pain is from the L1 compression fracture
- cw PT/OT evaluation
- pain control: scheduled tylenol, pain patches. prn Tramadol/Dilaudid
- Flexeril for muscle relaxer
- hold steroids
- Consulted IR for role of vertebroplasty -planned for next Friday after plavix washout
Constipation on imaging
- MiraLAX, Colace, senna
Urinary retention
- Straight cath in the ER
- continue bladder scan/SC protocol
Tachycardia likely from missed beta-blockers
- Metoprolol continued. Resolved
Leukocytosis likely from recent steroid use
- WBC 13.4 - > 12.3; patient is afebrile
- Continue to monitor
History of CAD
Cardiac stent
- On plavix for many years
- Unclear for senior care plavix instead of asa -will reach out to his Cards and make switch as appropriate to make him ready for Vertebroplasty
History of BPH
- Doxazosin, finasteride continue
Essential hypertension
- Metoprolol continue with hold parameter
GERD
- PPI continued
Hyperlipidemia
- Pravastatin continued
DVT prophylaxis: Lovenox
Code: Full
Discussed with daughter at bedside
Left message to automotive window tinter
Total time spent on today's encounter was 52 minutes which included time spent in counseling the patient/family regarding diagnosis and treatment plan as listed above, goals of care, and symptom management. Case was discussed with nursing staff,
specialists, and care coordinators/case management. All labs and imaging personally reviewed by me. Remainder the time spent in detailed review of previous records, lab data, imaging, and other medical provider documentation.
Anticipated Discharge: > 48 hours
Subjective/Interval History
-
Date of Service: June 21, 2025
Continued back pain with no radicular component today.
Scores 3 out of 10. Is having difficulty in getting in and out of bed. Requiring IV Toradol.
No nausea vomiting. No fever or chills. No shortness of breath or chest pain.
Objective Data
-
Vital Signs:
Vital Signs
Temp Pulse Resp BP Pulse Ox
97.5 F 80 20 121/60 97
06/21/25 11:36 06/21/25 11:36 06/21/25 11:36 06/21/25 11:36 06/21/25 11:36
I&O
06/20/25 06/21/25 06/22/25
06:59 06:59 06:59
Intake Total 1200 / 1200 1440 / 1440
Output Total 550 / 550 100 / 100
Balance 650 / 650 1340 / 1340
Physical Exam
-
General: No Apparent Distress; Negative Comfortable
Respiratory: Clear to Auscultation and Non Labored Respirations; Negative Accessory Resp Muscle Use
Cardiac: Regular Rhythm and S1/S2; Negative Tachycardic
Neuro: AO x 3 and No Motor Deficits
Psych: Calm; Negative Confused
[2025-06-21] MEDS: CARDURA 8 MG PO (16:06)
[2025-06-21] MEDS: TYLENOL PO (16:06)
[2025-06-21] MEDS: LOVENOX 40 MG SC (16:09)
[2025-06-21] MEDS: SENOKOT 8.6 MG PO (22:05)
[2025-06-21] MEDS: FLEXERIL 10 MG PO (22:05)
[2025-06-21] MEDS: PRAVACHOL 40 MG PO (22:06)
[2025-06-22] MEDS: TORADOL 15 MG IV ×3 (03:40→20:14)
[2025-06-22] MEDS: LOPRESSOR 100 MG PO (07:20)
[2025-06-22] MEDS: MIRALAX 17 GRAMS PO (07:20)
[2025-06-22] MEDS: PROTONIX 40 MG PO (07:20)
[2025-06-22] MEDS: LIDOCAINE 4% PATCH 1 PATCH TOPICAL (07:20)
[2025-06-22] MEDS: COLACE 100 MG PO (07:20)
[2025-06-22] MEDS: ASPIR LOW (ENTERIC COATED) 81 MG PO (07:20)
[2025-06-22] MEDS: FLEXERIL 5 MG PO (07:20)
[2025-06-22] MEDS: OCUVITE SOFTGEL 1 CAP PO ×2 (07:20→20:22)
[2025-06-22] MEDS: PROSCAR 5 MG PO (07:20)
[2025-06-22] MEDS: TYLENOL 1000 MG PO ×3 (07:20→21:49)
[2025-06-22 07:50] VITALS: BP 163/73
--- NOTE | 2025-06-22 10:36 | CM ---
CM reviewed chart, patient seen in chair.
Patient for vertebroplasty, planned for next week.
CM discussed SNF upon discharge- patient resides at [facility]- will send updated clinicals to [facility].
CM will continue to follow for all discharge planning needs.
Plan; vertebroplasty next week, SNF upon d.c
--- NOTE | 2025-06-22 12:21 | W.PN.HOSP.TC ---
Today's Communication/Plan
-
Continue with pain regimen. Cautious with IV Toradol.
Continue with PT OT eval
DC planning
Assessment / Plan
Assessment / Plan
Assessment:
Exacerbation of chronic back pain likely from endplate fracture
- ESR 28
1. lumbar spine x ray with Moderate right convex curvature of the upper lumbar spine.
2. Superior endplate fracture of L1 with moderate loss of vertebral body height.
3. 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
4. Osteoporosis.
5. Moderate to large amount of fecal material throughout the colon.
- MRI L spine shows L1 moderate compression fraction with mild number retropulsion but no significant secondary spinal canal stenosis. There is bone marrow edema of the L1 vertebral body. Chronic advanced DJD's of lumbar spine noted. Moderate to
severe spinal canal stenosis at L3-L4 noted
-Suspect his pain is from the L1 compression fracture
- cw PT/OT evaluation
- pain control: scheduled tylenol, pain patches. prn Tramadol/Dilaudid. Will be cautious with toradol use with concurrent use of aspirin. On PPI
- Flexeril for muscle relaxer
- hold steroids
- Consulted IR for role of vertebroplasty -planned for next Friday after plavix washout
Constipation on imaging
- MiraLAX, Colace, senna
Urinary retention
- Straight cath in the ER
- continue bladder scan/SC protocol
Tachycardia likely from missed beta-blockers
- Metoprolol continued. Resolved
Leukocytosis likely from recent steroid use
- WBC 13.4 - > 12.3; patient is afebrile
- Continue to monitor
History of CAD
Cardiac stent
- On plavix for many years
- Discussed with the primary oncology team at [facility] yesterday-no indication for continued Plavix use and can switch to oral aspirin. Last took coronary stent was around 15 years ago apparently.
History of BPH
- Doxazosin, finasteride continue
Essential hypertension
- Metoprolol continue with hold parameter
GERD
- PPI continued
Hyperlipidemia
- Pravastatin continued
DVT prophylaxis: Lovenox
Code: Full
Anticipated Discharge: 24 - 48 hours
Subjective/Interval History
-
Date of Service: June 22, 2025
Some improvement in back pain noticed by the patient. Currently sitting in the chair. Bending forward while sitting in the chair helps his back pain. Denies any sciatica.
No fever or chills.
Denies constipation.
Denies shortness of breath or chest pain.
Objective Data
-
Vital Signs:
Vital Signs
Temp Pulse Resp BP Pulse Ox
97.4 F 92 20 163/73 94
06/22/25 07:50 06/22/25 07:50 06/22/25 07:50 06/22/25 07:50 06/22/25 07:50
I&O
06/21/25 06/22/25 06/23/25
06:59 06:59 06:59
Intake Total 1440 / 1440 1320 / 1320
Output Total 100 / 100 1290 / 1290
Balance 1340 / 1340 30 / 30
Physical Exam
-
General: Comfortable
Respiratory: Clear to Auscultation and Non Labored Respirations; Negative Accessory Resp Muscle Use
Cardiac: Regular Rhythm and S1/S2; Negative Tachycardic
GI: Soft
Neuro: AO x 3
Psych: Calm; Negative Confused
--- NOTE | 2025-06-22 13:15 | PTCARENOTE ---
06/22- Patient c/o nausea, dry heaving and poor appetite. He did not eat breakfast and only picked at lunch. He denies any actual pain. He is not sure when the nausea started. Patient is AAOX3 but irritable and anxious now. Abdomen soft/NT but
round/distended. +BSX4. No positive RLQ tenderness or [place] sign. Skin=warm/pale/dry. Patient's last BM was 2 days ago. Notified Physician. Will continue to monitor.
[2025-06-22 15:50] VITALS: BP 147/73
[2025-06-22] MEDS: CARDURA 8 MG PO (16:08)
[2025-06-22] MEDS: LOVENOX 40 MG SC (16:10)
[2025-06-22] MEDS: LOPRESSOR PO (20:21)
[2025-06-22] MEDS: COLACE PO (20:23)
[2025-06-22] MEDS: PRAVACHOL 40 MG PO (21:50)
[2025-06-22] MEDS: FLEXERIL 10 MG PO (21:50)
[2025-06-22] MEDS: SENOKOT PO (21:54)
[2025-06-22 22:42] VITALS: BP 135/60
[2025-06-23 07:50] VITALS: BP 131/73
[2025-06-23 08:20] LABS: Blood Urea Nitrogen 20 mg/dl (9-20); Calcium 8.8 mg/dl (8.4-10.2); Carbon Dioxide 24 mmol/L (22-30); Chloride 101 mmol/L (98-107); Estimated Creatinine Clearance 64 ml/min; Glucose 106 mg/dl (70-99); Potassium 3.9 mmol/L (3.5-5.1); Sodium 132 mmol/L (135-145); eGFR > 60.00
[2025-06-23] MEDS: TYLENOL 1000 MG PO ×3 (09:05→22:04)
[2025-06-23] MEDS: ASPIR LOW (ENTERIC COATED) 81 MG PO (09:06)
[2025-06-23] MEDS: PROTONIX 40 MG PO (09:06)
[2025-06-23] MEDS: LOPRESSOR 100 MG PO ×2 (09:06→19:52)
[2025-06-23] MEDS: FLEXERIL 5 MG PO (09:07)
[2025-06-23] MEDS: OCUVITE SOFTGEL 1 CAP PO ×2 (09:07→19:59)
[2025-06-23] MEDS: MIRALAX PO (09:08)
[2025-06-23] MEDS: PROSCAR 5 MG PO (09:08)
[2025-06-23] MEDS: COLACE PO ×2 (09:08→19:51)
[2025-06-23] MEDS: ULTRAM 50 MG PO (09:11)
[2025-06-23] MEDS: LIDOCAINE 4% PATCH 1 PATCH TOPICAL (09:16)
--- NOTE | 2025-06-23 11:10 | W.PN.HOSP.TC ---
Today's Communication/Plan
-
continue PT/OT
continue pain control
Await LSO brace
IR vertebroplasty Friday
eventual SNF
Assessment / Plan
Assessment / Plan
Assessment:
Exacerbation of chronic back pain likely from endplate fracture
- ESR 28
1. lumbar spine x ray with Moderate right convex curvature of the upper lumbar spine.
2. Superior endplate fracture of L1 with moderate loss of vertebral body height.
3. 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
4. Osteoporosis.
5. Moderate to large amount of fecal material throughout the colon.
- MRI L spine shows L1 moderate compression fraction with mild number retropulsion but no significant secondary spinal canal stenosis. There is bone marrow edema of the L1 vertebral body. Chronic advanced DJD's of lumbar spine noted. Moderate to
severe spinal canal stenosis at L3-L4 noted
- Suspect pain is from the L1 compression fracture
- continue PT/OT evaluations
- pain control: scheduled Tylenol, pain patches. prn Tramadol/Dilaudid. Will be cautious with Toradol use with concurrent use of aspirin. On PPI
- Flexeril for muscle relaxer
- hold steroids
- IR consulted for role of vertebroplasty - planned for next Friday after Plavix washout
Constipation on imaging
- MiraLAX, Colace, senna
Urinary retention
- Straight cath in the ER
- continue bladder scan/SC protocol
Tachycardia likely from missed beta-blockers
- Metoprolol continued. Resolved
Leukocytosis likely from recent steroid use
- WBC 13.4 - > 9.9; patient is afebrile
- Continue to monitor
History of CAD
Cardiac stent
- On plavix for many years
- Dr. Cote discussed with the primary oncology team at [facility] - no indication for continued Plavix use and can switch to oral aspirin. Last took coronary stent was around 15 years ago apparently.
History of BPH
- Doxazosin, finasteride continue
Essential hypertension
- Metoprolol continue with hold parameter
GERD
- PPI continued
Hyperlipidemia
- Pravastatin continued
DVT prophylaxis: Lovenox
Code: Full
Anticipated Discharge: > 48 hours
Subjective/Interval History
-
Date of Service: June 23, 2025
resting comfortably, no complaints at present
Objective Data
-
Labs:
Laboratory Results
06/23/25
06:55
Sodium 132 L
Potassium 3.9
Chloride 101
Carbon Dioxide 24
BUN 20
Creatinine 0.9
Glucose 106 H
Calcium 8.8
Vital Signs:
Vital Signs
Temp Pulse Resp BP Pulse Ox
97.8 F 112 18 131/73 94
06/23/25 07:50 06/23/25 07:50 06/23/25 07:50 06/23/25 07:50 06/23/25 07:50
I&O
06/22/25 06/23/25 06/24/25
06:59 06:59 06:59
Intake Total 1320 / 1320 720 / 720
Output Total 1290 / 1290 1025 / 1025
Balance 30 / 30 -305 / -305
Physical Exam
-
General: No Apparent Distress
HEENT: Normocephalic and Atraumatic
Respiratory: Negative Wheezes
Cardiac: Regular Rhythm and S1/S2
GI: Soft
Genito-urinary: No Costovertebral Tender
Neuro: AO x 3
Psych: Calm
Data Reviewed
-
Total Time Spent with Patient (in minutes): 42
Labs: Labs Reviewed by me
--- NOTE | 2025-06-23 13:10 | CM ---
CM reviewed chart, care ongoing.
IR vertebroplasty Friday
Await LSO brace
Plan for SNF upon d/c- updated referral placed to [facility].
Auth required for SNF when stable.
CM will continue to follow.
Plan; Vertebroplasty Friday, will need SNF upon d/c- referral to [place] patient resident of [place]
[2025-06-23] MEDS: TORADOL 15 MG IV (15:20)
[2025-06-23 15:36] VITALS: BP 119/74
[2025-06-23] MEDS: CARDURA 8 MG PO (17:37)
[2025-06-23] MEDS: LOVENOX 40 MG SC (17:37)
[2025-06-23] MEDS: SENOKOT PO (22:05)
[2025-06-23] MEDS: FLEXERIL 10 MG PO (22:05)
[2025-06-23] MEDS: PRAVACHOL PO (22:10)
[2025-06-23 23:12] VITALS: BP 121/61
[2025-06-24 07:00] VITALS: BP 118/67
[2025-06-24 07:36] LABS: Hematocrit 37.4 % (39.0-52.0); Hemoglobin 12.3 g/dL (13.0-18.0); Mean Corp Hgb Conc. 32.9 g/dL (33.0-37.0); Mean Corpuscular Volume 83.1 fL (80.0-94.0); Platelet Count 244 10^3/uL (130-400); Red Cell Dist. Width 14.6 % (11.5-14.5)
[2025-06-24 07:49] LABS: Blood Urea Nitrogen 19 mg/dl (9-20); Calcium 8.8 mg/dl (8.4-10.2); Carbon Dioxide 28 mmol/L (22-30); Chloride 103 mmol/L (98-107); Estimated Creatinine Clearance 64 ml/min; Glucose 105 mg/dl (70-99); Potassium 4.2 mmol/L (3.5-5.1); Sodium 135 mmol/L (135-145); eGFR > 60.00
[2025-06-24] MEDS: ASPIR LOW (ENTERIC COATED) 81 MG PO (10:09)
[2025-06-24] MEDS: COLACE 100 MG PO ×2 (10:09→20:45)
[2025-06-24] MEDS: PROTONIX PO (10:09)
[2025-06-24] MEDS: LIDOCAINE 4% PATCH 1 PATCH TOPICAL (10:09)
[2025-06-24] MEDS: MIRALAX PO ×2 (10:09→10:18)
[2025-06-24] MEDS: OCUVITE SOFTGEL 1 CAP PO ×2 (10:09→20:45)
[2025-06-24] MEDS: LOPRESSOR 100 MG PO ×2 (10:09→20:47)
[2025-06-24] MEDS: FLEXERIL 5 MG PO (10:09)
[2025-06-24] MEDS: PROSCAR 5 MG PO (10:10)
[2025-06-24] MEDS: TYLENOL 1000 MG PO ×3 (10:10→22:56)
[2025-06-24] MEDS: TORADOL 15 MG IV ×2 (10:10→18:38)
[2025-06-24] MEDS: PROTONIX 40 MG PO (10:21)
--- NOTE | 2025-06-24 12:32 | W.PN.HOSP.TC ---
Today's Communication/Plan
-
hold ASA today
hold Friday Lovenox dose
IR Vertebroplasty Friday
continue pain meds
d/w Daughter
Assessment / Plan
Assessment / Plan
Assessment:
Exacerbation of chronic back pain likely from endplate fracture
- ESR 28
1. lumbar spine x ray with Moderate right convex curvature of the upper lumbar spine.
2. Superior endplate fracture of L1 with moderate loss of vertebral body height.
3. 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
4. Osteoporosis.
5. Moderate to large amount of fecal material throughout the colon.
- MRI L spine shows L1 moderate compression fraction with mild number retropulsion but no significant secondary spinal canal stenosis. There is bone marrow edema of the L1 vertebral body. Chronic advanced DJD's of lumbar spine noted. Moderate to
severe spinal canal stenosis at L3-L4 noted
- Suspect pain is from the L1 compression fracture
- continue PT/OT evaluations
- pain control: scheduled Tylenol, pain patches. prn Tramadol/Dilaudid. Will be cautious with Toradol use with concurrent use of aspirin. On PPI
- Flexeril for muscle relaxer
- hold steroids
- IR consulted for role of vertebroplasty - planned for next Friday after Plavix washout
Constipation on imaging
- MiraLAX, Colace, senna
Urinary retention
- Straight cath in the ER
- continue bladder scan/SC protocol
Tachycardia likely from missed beta-blockers
- Metoprolol continued. Resolved
Leukocytosis likely from recent steroid use
- WBC 13.4 - > 9.9; patient is afebrile
- Continue to monitor
History of CAD
Cardiac stent
- On plavix for many years
- Dr. Cote discussed with the primary oncology team at [facility] - no indication for continued Plavix use and can switch to oral aspirin. Last took coronary stent was around 15 years ago apparently.
- hold ASA per IR Request starting 06/24
History of BPH
- Doxazosin, finasteride continue
Essential hypertension
- Metoprolol continue with hold parameter
GERD
- PPI continued
Hyperlipidemia
- Pravastatin continued
DVT prophylaxis: Lovenox (hold Friday dose)
Code: Full
Anticipated Discharge: > 48 hours
Subjective/Interval History
-
Date of Service: June 24, 2025
reports less time for transfer from laying to sitting position
initially was discussing holding off IR procedure but now agrees he will need it
Objective Data
-
Labs:
Laboratory Results
06/24/25
06:40
WBC 10.8
Hgb 12.3 L
Hct 37.4 L
Plt Count 244 D
Sodium 135
Potassium 4.2
Chloride 103
Carbon Dioxide 28
BUN 19
Creatinine 0.9
Glucose 105 H
Calcium 8.8
Vital Signs:
Vital Signs
Temp Pulse Resp BP Pulse Ox
98.1 F 94 16 118/67 97
06/24/25 07:00 06/24/25 07:00 06/24/25 07:00 06/24/25 07:00 06/24/25 07:00
I&O
06/23/25 06/24/25 06/25/25
06:59 06:59 06:59
Intake Total 720 / 720 1200 / 1200
Output Total 1025 / 1025 1350 / 1350
Balance -305 / -305 -150 / -150
Physical Exam
-
General: No Apparent Distress
HEENT: Normocephalic and Atraumatic
Respiratory: Negative Wheezes
Cardiac: Regular Rhythm and S1/S2
GI: Soft
Musculoskeletal: No Edema
Neuro: AO x 3
Psych: Calm
Data Reviewed
-
Total Time Spent with Patient (in minutes): 42
Labs: Labs Reviewed by me
[2025-06-24 13:49] VITALS: BP 118/67; PULSE 94
--- NOTE | 2025-06-24 16:44 | CM ---
Patient family at bedside. Patient family would like to have [facility] placement if possible when patient is medically appropriate for SNF. CM will continue to follow for discharge planning needs.
Plan; SNF; [facility] if possible
[2025-06-24] MEDS: CARDURA 8 MG PO (18:20)
[2025-06-24] MEDS: LOVENOX 40 MG SC (18:21)
[2025-06-24 20:48] VITALS: BP 101/58
[2025-06-24] MEDS: FLEXERIL 10 MG PO (22:56)
[2025-06-24] MEDS: SENOKOT 8.6 MG PO (22:56)
[2025-06-24] MEDS: PRAVACHOL 40 MG PO (22:56)
[2025-06-24 23:09] VITALS: BP 102/60
[2025-06-25] MEDS: ULTRAM 50 MG PO (06:14)
[2025-06-25 07:00] VITALS: BP 144/72
[2025-06-25 07:05] LABS: Hematocrit 35.4 % (39.0-52.0); Hemoglobin 12.0 g/dL (13.0-18.0); Mean Corp Hgb Conc. 33.9 g/dL (33.0-37.0); Mean Corpuscular Volume 80.3 fL (80.0-94.0); Platelet Count 243 10^3/uL (130-400); Red Cell Dist. Width 14.3 % (11.5-14.5)
[2025-06-25 07:30] LABS: Blood Urea Nitrogen 21 mg/dl (9-20); Calcium 8.7 mg/dl (8.4-10.2); Carbon Dioxide 24 mmol/L (22-30); Chloride 103 mmol/L (98-107); Estimated Creatinine Clearance 64 ml/min; Glucose 104 mg/dl (70-99); Potassium 4.3 mmol/L (3.5-5.1); Sodium 132 mmol/L (135-145); eGFR > 60.00
[2025-06-25] MEDS: FLEXERIL 5 MG PO (09:07)
[2025-06-25] MEDS: COLACE 100 MG PO ×2 (09:07→21:06)
[2025-06-25] MEDS: LIDOCAINE 4% PATCH 1 PATCH TOPICAL (09:08)
[2025-06-25] MEDS: OCUVITE SOFTGEL 1 CAP PO ×2 (09:09→21:06)
[2025-06-25] MEDS: LOPRESSOR 100 MG PO ×2 (09:09→22:05)
[2025-06-25] MEDS: MIRALAX 17 GRAMS PO (09:09)
[2025-06-25] MEDS: TYLENOL 1000 MG PO ×3 (09:10→21:07)
[2025-06-25] MEDS: PROSCAR 5 MG PO (09:10)
[2025-06-25] MEDS: PROTONIX 40 MG PO (09:10)
--- NOTE | 2025-06-25 12:33 | W.PN.HOSP.TC ---
Today's Communication/Plan
-
Continue with symptomatic treatments for acute L1 compression fractures
Switch Toradol to morphine
Assessment / Plan
Assessment / Plan
Assessment:
Exacerbation of chronic back pain likely from endplate fracture
- ESR 28
1. lumbar spine x ray with Moderate right convex curvature of the upper lumbar spine.
2. Superior endplate fracture of L1 with moderate loss of vertebral body height.
3. 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
4. Osteoporosis.
5. Moderate to large amount of fecal material throughout the colon.
- MRI L spine shows L1 moderate compression fraction with mild number retropulsion but no significant secondary spinal canal stenosis. There is bone marrow edema of the L1 vertebral body. Chronic advanced DJD's of lumbar spine noted. Moderate to
severe spinal canal stenosis at L3-L4 noted
- Suspect pain is from the L1 compression fracture
- continue PT/OT evaluations
- pain control: scheduled Tylenol, pain patches. prn Tramadol/Dilaudid.
- Flexeril for muscle relaxer
- hold steroids
- IR consulted for role of vertebroplasty - planned for next Friday after Plavix washout
Constipation on imaging
- MiraLAX, Colace, senna
Urinary retention
- Straight cath in the ER
- continue bladder scan/SC protocol
Tachycardia likely from missed beta-blockers
- Metoprolol continued. Resolved
Leukocytosis likely from recent steroid use
- WBC 13.4 - > 9.9; patient is afebrile
- Continue to monitor
History of CAD
Cardiac stent
- On plavix for many years
- Dr. Cote discussed with the primary oncology team at [facility] - no indication for continued Plavix use and can switch to oral aspirin. Last coronary stent was around 15 years ago apparently.
- hold ASA per IR Request starting 06/24
History of BPH
- Doxazosin, finasteride continue
Essential hypertension
- Metoprolol continue with hold parameter
GERD
- PPI continued
Hyperlipidemia
- Pravastatin continued
DVT prophylaxis: Lovenox (hold Friday dose)
Code: Full
Anticipated Discharge: > 48 hours
Subjective/Interval History
-
Date of Service: June 25, 2025
No back pain with rest but gets provoked with activity.
Denies shortness of breath. No chest pain.
No nausea vomiting.
No dizziness.
Tolerating diet.
Objective Data
-
Labs:
Laboratory Results
06/25/25
06:48
WBC 8.9
Hgb 12.0 L
Hct 35.4 L
Plt Count 243
Sodium 132 L
Potassium 4.3
Chloride 103
Carbon Dioxide 24
BUN 21 H
Creatinine 0.9
Glucose 104 H
Calcium 8.7
Vital Signs:
Vital Signs
Temp Pulse Resp BP Pulse Ox
97.8 F 85 18 144/72 94
06/25/25 07:00 06/25/25 07:00 06/25/25 07:00 06/25/25 07:00 06/25/25 08:55
I&O
06/24/25 06/25/25 06/26/25
06:59 06:59 06:59
Intake Total 1200 / 1200 960 / 960
Output Total 1350 / 1350 575 / 575
Balance -150 / -150 385 / 385
Physical Exam
-
General: No Apparent Distress
Respiratory: Non Labored Respirations; Negative Accessory Resp Muscle Use
Cardiac: Regular Rhythm and S1/S2; Negative Tachycardic
GI: Soft
Musculoskeletal: No Edema
Neuro: AO x 3
Psych: Calm
Data Reviewed
-
Labs: Labs Reviewed by me
[2025-06-25] MEDS: DILAUDID 0.5 MG IV ×2 (13:16→21:30)
[2025-06-25 15:00] VITALS: BP 160/76
[2025-06-25 16:17] VITALS: BP 160/72; PULSE 64; O2SAT 99
[2025-06-25] MEDS: CARDURA 8 MG PO (17:03)
[2025-06-25] MEDS: LOVENOX 40 MG SC (17:04)
[2025-06-25] MEDS: FLEXERIL 10 MG PO (21:07)
[2025-06-25] MEDS: SENOKOT 8.6 MG PO (21:07)
[2025-06-25] MEDS: PRAVACHOL 40 MG PO (21:07)
[2025-06-25 23:30] VITALS: BP 151/74
[2025-06-26 07:30] VITALS: BP 136/71
[2025-06-26] MEDS: COLACE 100 MG PO ×2 (08:08→20:50)
[2025-06-26] MEDS: FLEXERIL 5 MG PO (08:08)
[2025-06-26] MEDS: LOPRESSOR 100 MG PO (08:09)
[2025-06-26] MEDS: LIDOCAINE 4% PATCH 1 PATCH TOPICAL (08:09)
[2025-06-26] MEDS: PROSCAR 5 MG PO (08:10)
[2025-06-26] MEDS: MIRALAX 17 GRAMS PO (08:10)
[2025-06-26] MEDS: OCUVITE SOFTGEL 1 CAP PO (08:10)
[2025-06-26] MEDS: PROTONIX 40 MG PO (08:10)
[2025-06-26] MEDS: TYLENOL 1000 MG PO ×3 (08:10→21:00)
[2025-06-26] MEDS: ULTRAM 50 MG PO (08:20)
--- NOTE | 2025-06-26 11:51 | W.PN.HOSP.TC ---
Today's Communication/Plan
-
Continue with pain regimen for his compression fracture and PT OT.
Await vertebroplasty.
Assessment / Plan
Assessment / Plan
Assessment:
Exacerbation of chronic back pain likely from endplate fracture
- ESR 28
1. lumbar spine x ray with Moderate right convex curvature of the upper lumbar spine.
2. Superior endplate fracture of L1 with moderate loss of vertebral body height.
3. 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
4. Osteoporosis.
5. Moderate to large amount of fecal material throughout the colon.
- MRI L spine shows L1 moderate compression fraction with mild number retropulsion but no significant secondary spinal canal stenosis. There is bone marrow edema of the L1 vertebral body. Chronic advanced DJD's of lumbar spine noted. Moderate to
severe spinal canal stenosis at L3-L4 noted
- Suspect pain is from the L1 compression fracture
- continue PT/OT evaluations
- pain control: scheduled Tylenol, pain patches. prn Tramadol/Dilaudid.
- Flexeril for muscle relaxer
- hold steroids
- IR consulted for role of vertebroplasty - planned for next Friday after Plavix washout
Constipation on imaging
- MiraLAX, Colace, senna
Urinary retention
- Straight cath in the ER
- continue bladder scan/SC protocol
Tachycardia likely from missed beta-blockers
- Metoprolol continued. Resolved
Leukocytosis likely from recent steroid use
- WBC 13.4 - > 9.9; patient is afebrile
- Continue to monitor
History of CAD
Cardiac stent
- On plavix for many years
- Dr. Cote discussed with the primary oncology team at [facility] - no indication for continued Plavix use and can switch to oral aspirin. Last coronary stent was around 15 years ago apparently.
- hold ASA per IR Request starting 06/24
History of BPH
- Doxazosin, finasteride continue
Essential hypertension
- Metoprolol continue with hold parameter
GERD
- PPI continued
Hyperlipidemia
- Pravastatin continued
DVT prophylaxis: Lovenox (hold Friday dose)
Code: Full
Anticipated Discharge: > 48 hours
Subjective/Interval History
-
Date of Service: June 26, 2025
No back pain
Is resting in his bed. He is still persistent back pain with transfers and mobility. Requiring IV pain medication.
Denies any fever or chills.
Denies any shortness of breath. Lying comfortably flat on his bed.
Objective Data
-
Vital Signs:
Vital Signs
Temp Pulse Resp BP Pulse Ox
99.1 F 74 16 136/71 97
06/26/25 07:30 06/26/25 07:30 06/26/25 07:30 06/26/25 07:30 06/26/25 07:30
I&O
06/25/25 06/26/25 06/27/25
06:59 06:59 06:59
Intake Total 960 / 960 960 / 960 120 / 120
Output Total 575 / 575 350 / 350 550 / 550
Balance 385 / 385 610 / 610 -430 / -430
Physical Exam
-
General: Comfortable
Respiratory: Clear to Auscultation (anteriorly) and Non Labored Respirations; Negative Accessory Resp Muscle Use
Cardiac: Regular Rhythm and S1/S2; Negative Tachycardic
Neuro: AO x 3
Psych: Calm; Negative Confused
[2025-06-26] MEDS: DILAUDID 0.5 MG IV (13:08)
[2025-06-26 15:30] VITALS: BP 104/50
[2025-06-26] MEDS: CARDURA 8 MG PO (17:18)
[2025-06-26] MEDS: LOVENOX 40 MG SC (17:19)
--- NOTE | 2025-06-26 17:51 | PTCARENOTE ---
Patient agreeable to brushing teeth and a partial bath. Patient set up with all supplies on bedside table and then patient refused to brush his teeth or get bathed.
[2025-06-26 19:00] VITALS: BP 100/68
[2025-06-26] MEDS: LOPRESSOR PO (20:56)
[2025-06-26] MEDS: OCUVITE SOFTGEL PO (20:56)
[2025-06-26] MEDS: SENOKOT PO (20:59)
[2025-06-26] MEDS: FLEXERIL 10 MG PO (21:00)
[2025-06-26] MEDS: PRAVACHOL 40 MG PO (21:00)
[2025-06-26 23:21] VITALS: BP 138/73
[2025-06-27] MEDS: DILAUDID 0.5 MG IV ×2 (00:31→04:37)
[2025-06-27 07:30] VITALS: BP 146/82
[2025-06-27 08:22] LABS: INR 1.06; PT 14.1 Sec (11.4-14.6)
[2025-06-27] MEDS: LIDOCAINE 4% PATCH 1 PATCH TOPICAL (08:27)
[2025-06-27] MEDS: MIRALAX 17 GRAMS PO (08:28)
[2025-06-27] MEDS: ULTRAM 50 MG PO ×2 (08:28→15:55)
[2025-06-27] MEDS: PROTONIX 40 MG PO (08:29)
[2025-06-27] MEDS: FLEXERIL 5 MG PO (08:29)
[2025-06-27] MEDS: PROSCAR 5 MG PO (08:29)
[2025-06-27] MEDS: LOPRESSOR 100 MG PO ×2 (08:29→19:56)
[2025-06-27] MEDS: OCUVITE SOFTGEL 1 CAP PO ×2 (08:29→19:56)
[2025-06-27] MEDS: TYLENOL 1000 MG PO ×3 (08:29→21:26)
[2025-06-27] MEDS: COLACE 100 MG PO ×2 (08:29→19:55)
--- NOTE | 2025-06-27 13:53 | W.PN.HOSP.TC ---
Today's Communication/Plan
-
IR for vertebroplasty Friday
Assessment / Plan
Assessment / Plan
Assessment:
Exacerbation of chronic back pain likely from endplate fracture
- ESR 28
1. lumbar spine x ray with Moderate right convex curvature of the upper lumbar spine.
2. Superior endplate fracture of L1 with moderate loss of vertebral body height.
3. 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
4. Osteoporosis.
5. Moderate to large amount of fecal material throughout the colon.
- MRI L spine shows L1 moderate compression fraction with mild number retropulsion but no significant secondary spinal canal stenosis. There is bone marrow edema of the L1 vertebral body. Chronic advanced DJD's of lumbar spine noted. Moderate to
severe spinal canal stenosis at L3-L4 noted
- Suspect pain is from the L1 compression fracture
- continue PT/OT evaluations
- pain control: scheduled Tylenol, pain patches. prn Tramadol/Dilaudid.
- Flexeril for muscle relaxer
- hold steroids
- IR consulted, vertebroplasty Friday
Constipation on imaging
- MiraLAX, Colace, senna
Urinary retention
- Straight cath in the ER
- continue bladder scan/SC protocol
Tachycardia likely from missed beta-blockers
- Metoprolol continued. Resolved
Leukocytosis likely from recent steroid use
- WBC 13.4 - > 9.9; patient is afebrile
- Continue to monitor
History of CAD
Cardiac stent
- On plavix for many years
- Dr. Cote discussed with the primary oncology team at [facility] - no indication for continued Plavix use and can switch to oral aspirin. Last coronary stent was around 15 years ago apparently.
- hold ASA per IR Request starting 06/24
History of BPH
- Doxazosin, finasteride continue
Essential hypertension
- Metoprolol continue with hold parameter
GERD
- PPI continued
Hyperlipidemia
- Pravastatin continued
Hyponatremia - monitor
DVT prophylaxis: Lovenox (hold Friday dose)
Code: Full
Anticipated Discharge: > 48 hours
Subjective/Interval History
-
Date of Service: June 27, 2025
no new changes today
for IR vertebroplasty Friday
Objective Data
-
Labs:
Laboratory Results
06/27/25
07:45
PT 14.1
INR 1.06
Vital Signs:
Vital Signs
Temp Pulse Resp BP Pulse Ox
98.0 F 109 20 146/82 98
06/27/25 07:30 06/27/25 07:30 06/27/25 07:30 06/27/25 07:30 06/27/25 07:30
I&O
06/26/25 06/27/25 06/28/25
06:59 06:59 06:59
Intake Total 960 / 960 540 / 540
Output Total 350 / 350 1650 / 1650
Balance 610 / 610 -1110 / -1110
Physical Exam
-
General: No Apparent Distress
HEENT: Normocephalic and Atraumatic
Respiratory: Negative Wheezes
Cardiac: Regular Rhythm
GI: Soft
Neuro: AO x 3
Psych: Calm
Data Reviewed
-
Total Time Spent with Patient (in minutes): 41
Labs: Labs Reviewed by me
[2025-06-27 15:17] VITALS: BP 104/55
--- NOTE | 2025-06-27 16:28 | CM ---
Pt for vertebroplasty tomorrow.
Will need postop order for PT OT evals.
Update [facility] in care port with new evals.
Will need auth for SNF.
PLAN Obtain auth for [facility]
[2025-06-27] MEDS: CARDURA 8 MG PO (18:18)
[2025-06-27] MEDS: PRAVACHOL 40 MG PO (21:27)
[2025-06-27] MEDS: SENOKOT 8.6 MG PO (21:27)
[2025-06-27] MEDS: FLEXERIL 10 MG PO (21:27)
[2025-06-27 23:14] VITALS: BP 133/67
[2025-06-28] VITALS (15 sets, daily range): BP systolic 81–165; BP diastolic 61–94
[2025-06-28] MEDS: ULTRAM 50 MG PO (04:39)
--- NOTE | 2025-06-28 07:25 | PTCARENOTE ---
06/28- Patient was called to Vertebroplasty early d/t an early opening. Will administer morning medications as ordered and fully assess patient upon return from OR. Patient currently is AAOX3, stable, pale skin but +PulsesX4, good to go to OR at
this time.
[2025-06-28 07:27] LABS: Hematocrit 39.7 % (39.0-52.0); Hemoglobin 12.6 g/dL (13.0-18.0); Mean Corp Hgb Conc. 31.7 g/dL (33.0-37.0); Mean Corpuscular Volume 84.1 fL (80.0-94.0); Platelet Count 232 10^3/uL (130-400); Red Cell Dist. Width 14.6 % (11.5-14.5)
[2025-06-28 07:35] LABS: INR 1.00; PT 13.5 Sec (11.4-14.6)
[2025-06-28 07:46] LABS: Blood Urea Nitrogen 20 mg/dl (9-20); Calcium 9.0 mg/dl (8.4-10.2); Carbon Dioxide 28 mmol/L (22-30); Chloride 104 mmol/L (98-107); Estimated Creatinine Clearance 72 ml/min; Glucose 107 mg/dl (70-99); Potassium 4.2 mmol/L (3.5-5.1); Sodium 135 mmol/L (135-145); eGFR > 60.00
[2025-06-28] MEDS: FLUSH (NSS) 1 FLUSH IV (08:45)
[2025-06-28] MEDS: ANCEF 10 IV (08:45)
--- NOTE | 2025-06-28 10:53 | W.PN.UPDATE ---
Update Note
Progress Note Update
Successful vertebroplasty of L1. Patient reports improved pain following procedure, but is still on bedrest to allow cement to harden.
OK to restart anticoagulation tomorrow 06/29.
--- NOTE | 2025-06-28 11:30 | PTCARENOTE ---
06/28- Patient returned from Procedure without issue. Puncture wound covered with sterile gauze. Dressing and surrounding skin CDI. AAOX3. Lungs CTA BL. Patient is able to walk with assist and walker to bedside recliner chair. He states lower
back pain is a 2/10 at this time. Administered am meds as ordered. VSS. Continue monitor.
[2025-06-28] MEDS: TYLENOL 1000 MG PO ×2 (11:38→20:54)
[2025-06-28] MEDS: LOPRESSOR 100 MG PO ×2 (11:38→20:51)
[2025-06-28] MEDS: FLEXERIL 5 MG PO (11:38)
[2025-06-28] MEDS: TYLENOL PO (11:38)
[2025-06-28] MEDS: PROTONIX 40 MG PO (11:38)
[2025-06-28] MEDS: COLACE 100 MG PO ×2 (11:38→20:53)
[2025-06-28] MEDS: MIRALAX 17 GRAMS PO (11:39)
[2025-06-28] MEDS: OCUVITE SOFTGEL 1 CAP PO ×2 (11:39→20:53)
[2025-06-28] MEDS: PROSCAR 5 MG PO (11:39)
[2025-06-28] MEDS: LIDOCAINE 4% PATCH 1 PATCH TOPICAL (11:39)
--- NOTE | 2025-06-28 12:31 | CM ---
CM reviewed chart, patient for vertebroplasty today.
Patient will need updated PT/OT for SNF insurance auth, will send updates to [facility].
Care ongoing, CM will continue to follow for all d/c planning needs.
Plan; [facility] SN[facility] pending bed availability, will need auth
--- NOTE | 2025-06-28 15:42 | W.PN.HOSP.TC ---
Today's Communication/Plan
-
repeat PT/OT evals post procedure
resume Lovenox tonight; ASA tomorrow - reviewed with IR
d/w daughter
Assessment / Plan
Assessment / Plan
Assessment:
Exacerbation of chronic back pain likely from endplate fracture
- ESR 28
1. lumbar spine x ray with Moderate right convex curvature of the upper lumbar spine.
2. Superior endplate fracture of L1 with moderate loss of vertebral body height.
3. 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
4. Osteoporosis.
5. Moderate to large amount of fecal material throughout the colon.
- MRI L spine shows L1 moderate compression fraction with mild number retropulsion but no significant secondary spinal canal stenosis. There is bone marrow edema of the L1 vertebral body. Chronic advanced DJD's of lumbar spine noted. Moderate to
severe spinal canal stenosis at L3-L4 noted
- Suspect pain is from the L1 compression fracture
- s/p IR vertebroplasty 06/28
- continue pain control: scheduled Tylenol, pain patches. prn Tramadol/Dilaudid.
- Flexeril for muscle relaxer
- PT/OT
Constipation on imaging
- MiraLAX, Colace, senna
Urinary retention
- Straight cath in the ER
- continue bladder scan/SC protocol
Tachycardia likely from missed beta-blockers
- Metoprolol continued. Resolved
Leukocytosis likely from recent steroid use
- WBC 13.4 - > 9.9; patient is afebrile
- Continue to monitor
History of CAD
Cardiac stent
- On plavix for many years
- Dr. Cote discussed with the primary oncology team at [facility] - no indication for continued Plavix use and can switch to oral aspirin. Last coronary stent was around 15 years ago apparently.
- resume ASA 06/29
History of BPH
- Doxazosin, finasteride continue
Essential hypertension
- Metoprolol continue with hold parameter
GERD
- PPI continued
Hyperlipidemia
- Pravastatin continued
Hyponatremia - monitor
DVT prophylaxis: Lovenox
Code: Full
Anticipated Discharge: 24 - 48 hours
Subjective/Interval History
-
Date of Service: June 28, 2025
s/p IR vertebroplasty today
patient feels improvement immediately
Objective Data
-
Labs:
Laboratory Results
06/28/25 06/28/25
07:12 07:13
WBC 7.4
Hgb 12.6 L
Hct 39.7
Plt Count 232
PT 13.5
INR 1.00
Sodium 135
Potassium 4.2
Chloride 104
Carbon Dioxide 28
BUN 20
Creatinine 0.8
Glucose 107 H
Calcium 9.0
Vital Signs:
Vital Signs
Temp Pulse Resp BP Pulse Ox
97.5 F 72 20 123/61 95
06/28/25 14:53 06/28/25 14:53 06/28/25 14:53 06/28/25 14:53 06/28/25 14:53
I&O
06/27/25 06/28/25 06/29/25
06:59 06:59 06:59
Intake Total 540 / 540 760 / 760 250 / 250
Output Total 1650 / 1650 700 / 700
Balance -1110 / -1110 60 / 60 250 / 250
Physical Exam
-
General: No Apparent Distress
HEENT: Normocephalic and Atraumatic
Respiratory: Negative Wheezes
Cardiac: Regular Rhythm and S1/S2
GI: Soft
Genito-urinary: No Costovertebral Tender
Neuro: AO x 3
Psych: Calm
Data Reviewed
-
Total Time Spent with Patient (in minutes): 42
Labs: Labs Reviewed by me
[2025-06-28] MEDS: LOVENOX 40 MG SC (17:03)
[2025-06-28] MEDS: CARDURA 8 MG PO (17:03)
[2025-06-28] MEDS: REMOVE LIDOCAINE PATCH 1 PATCH REMOVE (20:53)
[2025-06-28] MEDS: FLEXERIL 10 MG PO (20:54)
[2025-06-28] MEDS: SENOKOT 8.6 MG PO (20:54)
[2025-06-28] MEDS: PRAVACHOL 40 MG PO (20:55)
--- NOTE | 2025-06-29 02:28 | DOWNTIME ---
There was a [employer] Downtime on 06/29/2025 from 0100 to 06/29/2025 at 0215. Downtime documentation of patient's care, including medication administrations, has been reconciled in the electronic record per guidelines. Refer to the
patient's paper chart under the miscellaneous tab to see printed paper medication records and downtime forms.
[2025-06-29 07:50] VITALS: BP 134/83
[2025-06-29 07:54] LABS: Hematocrit 39.5 % (39.0-52.0); Hemoglobin 12.7 g/dL (13.0-18.0); Mean Corp Hgb Conc. 32.2 g/dL (33.0-37.0); Mean Corpuscular Volume 84.4 fL (80.0-94.0); Platelet Count 231 10^3/uL (130-400); Red Cell Dist. Width 14.6 % (11.5-14.5)
[2025-06-29] MEDS: FLEXERIL 5 MG PO (08:39)
[2025-06-29] MEDS: TYLENOL 1000 MG PO ×3 (08:39→22:49)
[2025-06-29] MEDS: PROTONIX 40 MG PO (08:39)
[2025-06-29] MEDS: OCUVITE SOFTGEL 1 CAP PO ×2 (08:39→19:57)
[2025-06-29] MEDS: ASPIR LOW (ENTERIC COATED) 81 MG PO (08:39)
[2025-06-29] MEDS: PROSCAR 5 MG PO (08:39)
[2025-06-29] MEDS: LOPRESSOR 100 MG PO ×2 (08:39→19:57)
[2025-06-29] MEDS: COLACE 100 MG PO ×2 (08:39→19:57)
[2025-06-29] MEDS: LIDOCAINE 4% PATCH 1 PATCH TOPICAL (08:40)
[2025-06-29] MEDS: MIRALAX PO (08:41)
[2025-06-29 09:31] LABS: Blood Urea Nitrogen 18 mg/dl (9-20); Calcium 9.1 mg/dl (8.4-10.2); Carbon Dioxide 26 mmol/L (22-30); Chloride 104 mmol/L (98-107); Estimated Creatinine Clearance 64 ml/min; Glucose 100 mg/dl (70-99); Potassium 4.5 mmol/L (3.5-5.1); Sodium 137 mmol/L (135-145); eGFR > 60.00
--- NOTE | 2025-06-29 09:45 | W.PN.GENERIC ---
Assessment / Plan
-
89 yo male with L1 Compression fracture s/p IR vertebral augmentation. He reports improvement in pain
May resume AC
May participate in PT
Stable for discharge from IR standpoint
I spent over 30 minutes in counseling and coordination of care with the patient reviewing previous medical records, laboratory studies and all relevant imaging, including history taking, physical exam and documentation as well as discussing results
of the procedure and expected operiod of convalescence.
Physician Progress Note
Subjective
89-year-old male with past medical history of chronic back pain, hypertension, reflux, osteoporosis, and cardiac stent on Plavix who was admitted for exacerbation of back pain. He underwent L1 vertebral augmentation yesterday. He reports
significant improvement in his back pain.
Past Medical History:
Macular degeneration, cardiac stents, hypertension, hyperlipidemia, osteoporosis
Past Surgical History:
Cardiac stents
Social History
Tobacco: Non-smoker
Living: Alone
Allergies
Allergy/AdvReac Type Severity Reaction Status Date / Time
No Known Allergies Allergy Unverified 06/12/25 12:43
Home Medications
The patients current medications were documented and reviewed at the time of this consult including medication name, dosage, frequency and route of administration acetaminophen 650 mg tablet,extended release 1,300 mg PO Q6HPRN PRN mild pain
06/18/25 cholecalciferol (vitamin D3) 50 mcg (2,000 unit) tablet (Vitamin D3) 50 mcg PO DAILY 06/18/25 clopidogrel 75 mg tablet (Plavix) 75 mg PO DAILY 06/18/25 cyclobenzaprine 10 mg tablet 10 mg PO HS 06/18/25 cyclobenzaprine 5 mg tablet 5 mg PO
BID 06/18/25 doxazosin 8 mg tablet 8 mg PO QPM 06/18/25 finasteride 5 mg tablet 5 mg PO DAILY 06/18/25 glucosamine sulfate 500 mg tablet (Glucosamine) 1,000 mg PO DAILY 06/18/25 glucosamine sulfate 500 mg tablet (Glucosamine) 500 mg PO QPM 06/18/25
metoprolol tartrate 100 mg tablet (Lopressor) 100 mg PO BID 06/18/25 omeprazole 40 mg capsule,delayed release 40 mg PO DAILY 06/18/25 pravastatin 40 mg tablet 40 mg PO HS 06/18/25 vitamins A,C,H-bfcl-rnxfbv 2,148 mcg-113 mg-45 mg-17.4 mg tablet
(PreserVision AREDS) 1 tab PO BID 06/18/25
Objective
Vital Signs
Temp Pulse Resp BP Pulse Ox
97.9 F 87 18 134/83 97
06/29/25 07:50 06/29/25 07:50 06/29/25 07:50 06/29/25 07:50 06/29/25 07:50
Lab Results
06/29/25 07:32
06/29/25 07:32
PE:
This is a WNWD 89 yo male in NAD sitting up in bed eating breakfast. Color is good. Skin is warma nd dry. Heart is regular Lungs are CTA. Abdomen is soft and nontender with BS. There is no back pain on palpation. Dressing intact with small
amount of dried blodd. No hematoma. Stength and sensation to LE maintained
[2025-06-29 10:23] VITALS: BP 142/74; PULSE 68; O2SAT 96
[2025-06-29 10:26] VITALS: BP 142/74; PULSE 67; O2SAT 97
[2025-06-29] MEDS: TORADOL 15 MG IV (11:35)
--- NOTE | 2025-06-29 11:36 | CM ---
CM reviewed chart, reviewed with Hospitalist.
Patient seen in chair, discussed plans for d/c to [facility], likely /Friday.
Auth submitted to [place] and [facility], faxed to [phone], pending reference # [id number].
CM will continue to follow for all d/c planning needs.
Plan; [facility], auth submitted, pending reference #[id number].
--- NOTE | 2025-06-29 14:05 | W.PN.HOSP.TC ---
Today's Communication/Plan
-
Medically stable for DC to SNF pending auth. d/w CM.
Assessment / Plan
Assessment / Plan
Assessment:
Exacerbation of chronic back pain likely from endplate fracture
- ESR 28
1. lumbar spine x ray with Moderate right convex curvature of the upper lumbar spine.
2. Superior endplate fracture of L1 with moderate loss of vertebral body height.
3. 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
4. Osteoporosis.
5. Moderate to large amount of fecal material throughout the colon.
- MRI L spine shows L1 moderate compression fraction with mild number retropulsion but no significant secondary spinal canal stenosis. There is bone marrow edema of the L1 vertebral body. Chronic advanced DJD's of lumbar spine noted. Moderate to
severe spinal canal stenosis at L3-L4 noted
- Suspect pain is from the L1 compression fracture
- s/p IR vertebroplasty 06/28
- continue pain control: scheduled Tylenol, pain patches. prn Tramadol/Dilaudid.
- Flexeril for muscle relaxer
- PT/OT - SNF being arranged, pending auth
Constipation on imaging
- MiraLAX, Colace, senna
- most recent BM 06/28
Urinary retention
- Straight cath in the ER
- continue bladder scan/SC protocol
Tachycardia likely from missed beta-blockers
- Metoprolol continued. Resolved
Leukocytosis likely from recent steroid use
- WBC 13.4 - > 9.9; patient is afebrile
- Continue to monitor
History of CAD
Cardiac stent
- On Plavix for many years
- Dr. Cote discussed with the primary oncology team at [facility] - no indication for continued Plavix use and can switch to oral aspirin. Last coronary stent was around 15 years ago apparently.
- continue ASA
History of BPH
- Doxazosin, finasteride continue
Essential hypertension
- Metoprolol continue with hold parameter
GERD
- PPI continued
Hyperlipidemia
- Pravastatin continued
Hyponatremia - monitor
DVT prophylaxis: Lovenox
Code: Full
Anticipated Discharge: 24 - 48 hours
Subjective/Interval History
-
Date of Service: June 29, 2025
patient noting significant improvement in back pain, able to sit up straight as well
Objective Data
-
Labs:
Laboratory Results
06/29/25
07:32
WBC 9.1
Hgb 12.7 L
Hct 39.5
Plt Count 231
Sodium 137
Potassium 4.5
Chloride 104
Carbon Dioxide 26
BUN 18
Creatinine 0.9
Glucose 100 H
Calcium 9.1
Vital Signs:
Vital Signs
Temp Pulse Resp BP Pulse Ox
97.9 F 87 18 134/83 97
06/29/25 07:50 06/29/25 07:50 06/29/25 07:50 06/29/25 07:50 06/29/25 07:50
I&O
06/28/25 06/29/25 06/30/25
06:59 06:59 06:59
Intake Total 760 / 760 1510 / 1510
Output Total 700 / 700 1480 / 1480
Balance 60 / 60 30 / 30
Physical Exam
-
General: No Apparent Distress
HEENT: Normocephalic and Atraumatic
Respiratory: Negative Wheezes
Cardiac: Regular Rhythm and S1/S2
GI: Soft and Nontender
Musculoskeletal: No Edema
Neuro: AO x 3
Hematologic / Lymphatic: No Lymphadenopathy
Psych: Calm
Data Reviewed
-
Total Time Spent with Patient (in minutes): 42
Labs: Labs Reviewed by me
[2025-06-29 15:34] VITALS: BP 117/60
[2025-06-29] MEDS: CARDURA 8 MG PO (17:48)
[2025-06-29] MEDS: LOVENOX 40 MG SC (17:49)
[2025-06-29] MEDS: REMOVE LIDOCAINE PATCH 1 PATCH REMOVE (19:53)
[2025-06-29 19:56] VITALS: BP 111/58
[2025-06-29] MEDS: SENOKOT 8.6 MG PO (22:49)
[2025-06-29] MEDS: PRAVACHOL 40 MG PO (22:49)
[2025-06-29] MEDS: FLEXERIL 10 MG PO (22:49)
[2025-06-29 23:24] VITALS: BP 130/72
[2025-06-30] MEDS: REFRESH EYE DROPS (PF) 1 DROPS OPHTH ×2 (04:09→07:36)
[2025-06-30 07:00] VITALS: BP 146/86
[2025-06-30] MEDS: ASPIR LOW (ENTERIC COATED) 81 MG PO (07:32)
[2025-06-30] MEDS: PROTONIX 40 MG PO (07:32)
[2025-06-30] MEDS: OCUVITE SOFTGEL 1 CAP PO (07:32)
[2025-06-30] MEDS: FLEXERIL 5 MG PO (07:33)
[2025-06-30] MEDS: PROSCAR 5 MG PO (07:33)
[2025-06-30] MEDS: TYLENOL 1000 MG PO (07:33)
[2025-06-30] MEDS: LOPRESSOR 100 MG PO (07:33)
[2025-06-30] MEDS: COLACE 100 MG PO (07:33)
[2025-06-30] MEDS: TORADOL 15 MG IV (07:34)
[2025-06-30] MEDS: LIDOCAINE 4% PATCH 1 PATCH TOPICAL (07:35)
[2025-06-30] MEDS: MIRALAX PO (07:35)
--- NOTE | 2025-06-30 09:38 | CM ---
indicated patient ready for discharge.
Received auth form [facility] from [facility] from 06/30/25 to 07/04/25 auth number [id number] , reference #[id number]. fax NRD to [phone] .
Divina from [facility] aware and accepted patient .
Reviewed above with dgt Maryana [phone] reviewed IMM and dc with her.
Due to pts [facility] ambulance set up Medical [facility] form completed.
[facility]
report [phone]
fax [phone]
PLAN To [facility] today.
[2025-06-30] MEDS: FLUZONE HIGH-DOSE 2025-26 0.5 ML IM (10:32)
--- NOTE | 2025-06-30 12:52 | W.PN.HOSP.TC ---
Today's Communication/Plan
-
dc to SNF today
Assessment / Plan
Assessment / Plan
Assessment:
Exacerbation of chronic back pain likely from endplate fracture
- ESR 28
1. lumbar spine x ray with Moderate right convex curvature of the upper lumbar spine.
2. Superior endplate fracture of L1 with moderate loss of vertebral body height.
3. 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
4. Osteoporosis.
5. Moderate to large amount of fecal material throughout the colon.
- MRI L spine shows L1 moderate compression fraction with mild number retropulsion but no significant secondary spinal canal stenosis. There is bone marrow edema of the L1 vertebral body. Chronic advanced DJD's of lumbar spine noted. Moderate to
severe spinal canal stenosis at L3-L4 noted
- Suspect pain is from the L1 compression fracture
- s/p IR vertebroplasty 06/28
- continue pain control: scheduled Tylenol, pain patches. prn Tramadol/Dilaudid.
- Flexeril for muscle relaxer
- PT/OT - SNF being arranged, pending auth
Constipation on imaging
- MiraLAX, Colace, senna
- most recent BM 06/28
Urinary retention
- Straight cath in the ER
- continue bladder scan/SC protocol
Tachycardia likely from missed beta-blockers
- Metoprolol continued. Resolved
Leukocytosis likely from recent steroid use
- WBC 13.4 - > 9.9; patient is afebrile
- Continue to monitor
History of CAD
Cardiac stent
- On Plavix for many years
- Dr. Cote discussed with the primary oncology team at [facility] - no indication for continued Plavix use and can switch to oral aspirin. Last coronary stent was around 15 years ago apparently.
- continue ASA
History of BPH
- Doxazosin, finasteride continue
Essential hypertension
- Metoprolol continue with hold parameter
GERD
- PPI continued
Hyperlipidemia
- Pravastatin continued
Hyponatremia - monitor
DVT prophylaxis: Lovenox
Code: Full
More than 30 minutes spent in discharge including
Final examination of the patient
Summarizing hospital stay
Instructions for continuing care to all relevant caregivers
Preparation of discharge records, prescriptions, and referral forms
Total time spent (in minutes):41
Anticipated Discharge: Today
Subjective/Interval History
-
Date of Service: June 30, 2025
reports limitations in activity with brace and wants to discontinue use
Objective Data
-
Vital Signs:
Vital Signs
Temp Pulse Resp BP Pulse Ox
97.9 F 85 18 146/86 95
06/30/25 07:00 06/30/25 07:00 06/30/25 07:00 06/30/25 07:00 06/30/25 07:00
I&O
06/29/25 06/30/25 07/01/25
06:59 06:59 06:59
Intake Total 1510 / 1510 1500 / 1500
Output Total 1480 / 1480 1125 / 1125
Balance 30 / 30 375 / 375
Physical Exam
-
General: No Apparent Distress
HEENT: Normocephalic and Atraumatic
Respiratory: Negative Wheezes
Cardiac: Regular Rhythm and S1/S2
GI: Soft and Nontender
Genito-urinary: No Costovertebral Tender
Neuro: AO x 3
Psych: Calm
Data Reviewed
-
Total Time Spent with Patient (in minutes): 42
Labs: Labs Reviewed by me
--- NOTE | 2025-06-30 13:01 | W.DCSUMMARY ---
Discharge Summary
Discharge Data
Date of Admission: 06/23/25
Date of Discharge: 06/30/25
-
Pending Results: No
Hospital Course
89 y/o M, hx of CAD with stents, BPH, GERD, HLD, HTN presented to ER on 06/18 with acute lower back pain. His MRI showed showed L1 moderate compression fraction with mild number retropulsion but no significant secondary spinal canal stenosis along
with bone marrow edema of the L1 vertebral body. Patient was started on pain control. He underwent IR guided vertebroplasty 06/28 with improvement in pain and functioning. He was discharged to SNF on 06/30
Of note, he history of cardiac stents was remote and his [facility]ander Hand in [facility] was contacted and recommended stopping Plavix but keeping aspirin.
Discharge Plan
-
Patient Disposition: Alf/SNF
Discharge Diagnosis/Procedures: L1 moderate compression fraction with mild number retropulsion but no significant secondary spinal canal stenosis. There is bone marrow edema of the L1 vertebral body s/p IR vertebroplasty on 06/28
Condition: Fair
Diet: Regular
Activity: As tolerated
Bathing Restrictions: None
Other Services: PT and OT
Referrals:
Johnny Santoro DO [Family Provider, Internal Medicine] - in two weeks
Additional Discharge Medication Instructions: Plavix stopped after discussion with [facility] conference manager
Prescriptions:
New
cyclobenzaprine 10 mg Tablet
5 mg PO DAILY Qty: 30 0RF
lidocaine 4 % Adhesive Patch,Medicated
1 patch topical DAILY Qty: 30 0RF
polyethylene glycol 3350 17 gram Powder In Packet
17 g PO DAILYPRN PRN (Reason: constipation) Qty: 30 0RF
sennosides-docusate sodium [Senna Plus] 8.6-50 mg Tablet
1 tab PO BIDPRN PRN (Reason: constipation) Qty: 60 0RF
aspirin 81 mg Tablet,Delayed Release (Dr/Ec)
81 mg PO DAILY Qty: 100 0RF
tramadol 50 mg Tablet
50 mg PO Q6HPRN PRN (Reason: moderate pain) Qty: 10 0RF
acetaminophen [Tylenol Extra Strength] 500 mg Tablet
1,000 mg PO TID Qty: 100 0RF
Continued
cyclobenzaprine 10 mg Tablet
10 mg PO HS
pravastatin 40 mg Tablet
40 mg PO HS
metoprolol tartrate [Lopressor] 100 mg Tablet
100 mg PO BID
glucosamine sulfate [Glucosamine] 500 mg Tablet
500 mg PO QPM
glucosamine sulfate [Glucosamine] 500 mg Tablet
1,000 mg PO DAILY
omeprazole 40 mg Capsule,Delayed Release(Dr/Ec)
40 mg PO DAILY
acetaminophen 650 mg Tablet Extended Release
1,300 mg PO Q6HPRN PRN (Reason: mild pain)
doxazosin 8 mg Tablet
8 mg PO QPM
finasteride 5 mg Tablet
5 mg PO DAILY
cholecalciferol (vitamin D3) [Vitamin D3] 50 mcg (2,000 unit) Tablet
50 mcg PO DAILY
PreserVision AREDS 2,148 mcg-113 mg-45 mg-17.4mg Tablet
1 tab PO BID
Discontinued
clopidogrel [Plavix] 75 mg Tablet
75 mg PO DAILY
cyclobenzaprine [Flexeril] 5 mg Tablet
5 mg PO BID
Discharge Orders:
Discharge Patient (As Directed); Ordered 06/30/25
Ordered By: Modesto Davis
Discharge Date and Time
Print Language: SPANISH
[2025-06-30 13:31] VITALS: BP 110/85
== END 2025-06-30 14:58 | DRG 516 ==
LOC: 4 WEST ACU 07:47
PROVIDERS: Internal Medicine; Nurse Practitioner; Radiology Diagnostic Radiology; Radiology Vascular & Interventional Radiology; ADMITTING PHYSICIAN Internal Medicine; ATTENDING PHYSICIAN Internal Medicine; EMERGENCY PHYSICIAN Emergency Medicine; FAMILY PHYSICIAN Internal Medicine
PROC: 0QU03JZ Supplement Lumbar Vertebra with Synthetic Substitute, Percutaneous Approach (ICD-10-PCS; 2025-06-28)
PROC: 0QS03ZZ Reposition Lumbar Vertebra, Percutaneous Approach (ICD-10-PCS; 2025-06-28)
PROC: 3E02340 Introduction of Influenza Vaccine into Muscle, Percutaneous Approach (ICD-10-PCS; 2025-06-30)
DX: M48.56XA Collapsed vertebra, not elsewhere classified, lumbar region, initial encounter for fracture (principal); E87.1 Hypo-osmolality and hyponatremia; G89.29 Other chronic pain; I10 Essential (primary) hypertension; K21.9 Gastro-esophageal reflux disease without esophagitis; N40.1 Benign prostatic hyperplasia with lower urinary tract symptoms; R33.8 Other retention of urine; I25.10 Atherosclerotic heart disease of native coronary artery without angina pectoris; E78.5 Hyperlipidemia, unspecified; H35.30 Unspecified macular degeneration; M81.0 Age-related osteoporosis without current pathological fracture; K59.00 Constipation, unspecified; D72.829 Elevated white blood cell count, unspecified; T38.0X5A Adverse effect of glucocorticoids and synthetic analogues, initial encounter; Y92.9 Unspecified place or not applicable; Z95.5 Presence of coronary angioplasty implant and graft; Z79.02 Long term (current) use of antithrombotics/antiplatelets; Z23 Encounter for immunization
CPT/HCPCS: 22514; 51701; 51798; 72148; 80048; 80053; 81003; 85025; 85027; 85610; 85652; 86140; 90662; 93005; 96361; 96374; 96375; 96376; 97116; 97167; 97530; 97535; 99285; G0008

== ENCOUNTER → 2025-07-04 10:36 | Outpatient (REF) | payer OTHER, SELFPAY ==
[2025-07-04 11:08] LABS: ALT (SGPT) 17 U/L (0-50); AST (SGOT) 22 U/L (17-59); Albumin 3.8 g/dl (3.5-5.0); Alkaline Phosphatase 129 U/L (38-126); Blood Urea Nitrogen 20 mg/dl (9-20); Calcium 8.9 mg/dl (8.4-10.2); Carbon Dioxide 27 mmol/L (22-30); Chloride 105 mmol/L (98-107); Glucose 101 mg/dl (70-99); Magnesium 2.1 mg/dl (1.6-2.3); Potassium 4.1 mmol/L (3.5-5.1); Sodium 136 mmol/L (135-145); Total Protein 6.1 g/dl (6.3-8.2); eGFR > 60.00
[2025-07-04 11:22] LABS: Hematocrit 34.1 % (39.0-52.0); Hemoglobin 10.9 g/dL (13.0-18.0); Mean Corp Hgb Conc. 32.0 g/dL (33.0-37.0); Mean Corpuscular Volume 82.8 fL (80.0-94.0); Nucleated Red Blood Cells % 0 % (-); Platelet Count 217 10^3/uL (130-400); Red Cell Dist. Width 14.3 % (11.5-14.5)
== END ==
LOC: OLABWHC 10:36
PROVIDERS: ATTENDING PHYSICIAN Family Medicine
DX: M48.56XD Collapsed vertebra, not elsewhere classified, lumbar region, subsequent encounter for fracture with routine healing (principal)
CPT/HCPCS: 36415; 80053; 83735; 85025